=== PATIENT | male | born 1945 | race Caucasian/White ===

== ENCOUNTER 2016-05-11 | Outpatient (CLI) | payer MEDICARE | END 2016-05-11 13:59 | disposition critical access hospital (66) | CPT/HCPCS: A0170; A0425; A0426; A0429 ==

== ENCOUNTER 2016-05-11 | Outpatient (CLI) | payer MEDICARE | END 2016-05-11 22:01 | disposition short-term general hospital (02) ==

== ENCOUNTER 2016-05-11 14:41 | Emergency (ER) | payer MEDICARE ==
[2016-05-11] MEDS ORDERED: ONDANSETRON 4 MG/2 ML VIAL IVP STA (15:43)
[2016-05-11] MEDS ORDERED: SODIUM CHLORIDE 0.9% 1,000 ML IV ONE ×4 (15:43→21:12)
[2016-05-11] MEDS ORDERED: ONDANSETRON 4 MG/2 ML VIAL ONE (15:48)
[2016-05-11] MEDS ORDERED: LIDOCAINE 2% URO-JET 5 ML SYRINGE UR ONE (18:23)
[2016-05-11] MEDS ORDERED: ACETAMINOPHEN 325 MG TABLET PO PRN (18:40)
[2016-05-11] MEDS ORDERED: TEMAZEPAM 15 MG CAPSULE PO PRN (18:40)
[2016-05-11] MEDS ORDERED: ONDANSETRON 4 MG/2 ML VIAL IVP PRN (18:40)
[2016-05-11] MEDS ORDERED: SODIUM CHLORIDE FLUSH 0.9% 10 ML SYRINGE IVP PRN (18:40)
[2016-05-11] MEDS ORDERED: SODIUM CHLORIDE 0.9% 1,000 ML IV SCH (19:00)
[2016-05-11] MEDS ORDERED: CIPROFLOXACIN 400 MG/200 ML 200 ML IV ONE (20:36)
[2016-05-11] MEDS ORDERED: HEPARIN 5,000 UNIT/ML VIAL SUBQ SCH (21:00)
[2016-05-11] MEDS ORDERED: SODIUM CHLORIDE FLUSH 0.9% 10 ML SYRINGE IVP SCH (22:00)
[2016-05-12] MEDS ORDERED: TAMSULOSIN 0.4 MG CAPSULE PO SCH (09:00)
[2016-05-12] MEDS ORDERED: POLYETHYLENE GLYCOL 3350 17 GM PACKET PO SCH (09:00)
[2016-05-12] MEDS ORDERED: ASPIRIN EC 81 MG TABLET PO SCH (09:00)
[2016-05-12] MEDS ORDERED: amLODIPine 5 MG TABLET PO SCH (09:00)
[2016-05-12] MEDS ORDERED: ATORVASTATIN 40 MG TABLET PO SCH (09:00)
== END 2016-05-11 22:09 | disposition short-term general hospital (02) ==
DX: N28.9 Disorder of kidney and ureter, unspecified (principal); N40.1 Benign prostatic hyperplasia with lower urinary tract symptoms; R33.8 Other retention of urine; N35.9 Urethral stricture, unspecified; K52.1 Toxic gastroenteritis and colitis; T36.95XA Adverse effect of unspecified systemic antibiotic, initial encounter; E86.0 Dehydration; N30.00 Acute cystitis without hematuria; E11.9 Type 2 diabetes mellitus without complications; Z79.84 Long term (current) use of oral hypoglycemic drugs; J44.9 Chronic obstructive pulmonary disease, unspecified; Z79.82 Long term (current) use of aspirin
CPT/HCPCS: 36415; 51102; 51702; 51798; 76770; 80048; 80053; 81001; 83690; 83735; 85025; 87086; 96360; 96361; 99284; G0103

== ENCOUNTER 2016-06-21 08:07 | Outpatient (CLI) | payer MEDICARE | END 2016-06-21 08:08 | disposition home or self-care (01) | DX: E11.65 Type 2 diabetes mellitus with hyperglycemia (principal) ==

== ENCOUNTER 2016-09-18 06:25 | Outpatient (CLI) | payer MEDICARE | END 2016-09-18 06:26 | disposition home or self-care (01) | LOC: LAB 06:25 | PROVIDERS: ATTEND Urology | DX: R68.82 Decreased libido (principal) | CPT/HCPCS: 36415; 84403 ==

== ENCOUNTER 2016-10-23 06:15 | Outpatient (CLI) | payer MEDICARE | END 2016-10-23 06:16 | disposition home or self-care (01) | LOC: LAB 06:15 | PROVIDERS: ATTEND Urology | DX: E29.1 Testicular hypofunction (principal) | CPT/HCPCS: 36415; 84403 ==

== ENCOUNTER 2017-01-15 13:00 | Outpatient (CLI) | payer MEDICARE ==
[2017-01-15 13:13] LABS: BASOPHILS # (AUTO) 0.1 10^3/uL (0.0-0.1); BASOPHILS % (AUTO) 0.7 %; EOSINOPHILS # (AUTO) 0.3 10^3/uL (0.0-0.7); EOSINOPHILS % (AUTO) 3.1 %; HCT - HEMATOCRIT 49.1 % (42.0-52.0); HGB - HEMOGLOBIN 15.9 g/dL (14.0-18.0); LYMPHOCYTES # (AUTO) 3.2 10^3/uL (1.5-3.5); LYMPHOCYTES % (AUTO) 30.5 %; MEAN CORPUSCULAR HEMOGLOBIN 27.8 pg (27.0-31.0); MEAN CORPUSCULAR HGB CONC 32.3 g/dL (32.0-36.0); MEAN CORPUSCULAR VOLUME 86.1 fL (80.0-94.0); MEAN PLATELET VOLUME 8.6 fL (7.4-11.4); MONOCYTES # (AUTO) 0.7 10^3/uL (0.0-1.0); MONOCYTES % (AUTO) 6.6 %; NEUTROPHILS # (AUTO) 6.2 10^3/uL (1.5-6.6); NEUTROPHILS % (AUTO) 59.1 %; NUCLEATED RED BLOOD CELLS AUTO 0.1 /100WBC; UNCORRECTED WHITE BLOOD COUNT 10.6 x10^3/uL; WHITE BLOOD COUNT 10.6 x10^3/uL (4.8-10.8)
[2017-01-15 13:32] LABS: ALBUMIN/GLOBULIN RATIO 1.3 (1.0-2.2); BILIRUBIN,TOTAL 0.7 mg/dL (0.2-1.0); BUN - BLOOD UREA NITROGEN 15 mg/dL (6-20); CALCIUM 8.6 mg/dL (8.5-10.3); CARBON DIOXIDE - CO2 27 mmol/L (21-32); CHLORIDE 101 mmol/L (101-111); CHOL/HDL RATIO 4.2 (<5.0); CHOLESTEROL 126 mg/dL; CREATININE 0.9 mg/dL (0.6-1.2); GFR - MDRD 83 (>89); GLUCOSE 127 mg/dL (70-100); HDL CHOLESTEROL 30 mg/dL; LDL/HDL RATIO 2.1 (<3.6); POTASSIUM 3.7 mmol/L (3.5-5.0); SODIUM 138 mmol/L (135-145); TOTAL PROTEIN 6.9 g/dL (6.7-8.2); TRIGLYCERIDES 166 mg/dL; VLDL CHOLESTEROL 33 mg/dL
[2017-01-15 15:12] LABS: HEMOGLOBIN A1C 1.15 g/dL
== END 2017-01-15 13:01 | disposition home or self-care (01) ==
LOC: LAB.R 13:00
PROVIDERS: ATTEND Internal Medicine
DX: I10 Essential (primary) hypertension (principal); E11.9 Type 2 diabetes mellitus without complications; E78.5 Hyperlipidemia, unspecified; Z79.899 Other long term (current) drug therapy
CPT/HCPCS: 80053; 80061; 83036; 84443; 85025

== ENCOUNTER 2017-03-04 06:03 | Outpatient (CLI) | payer MEDICARE ==
[2017-03-04 06:25] LABS: BASOPHILS # (AUTO) 0.2 10^3/uL (0.0-0.1); BASOPHILS % (AUTO) 1.4 %; EOSINOPHILS # (AUTO) 0.5 10^3/uL (0.0-0.7); EOSINOPHILS % (AUTO) 4.4 %; HCT - HEMATOCRIT 48.3 % (42.0-52.0); HGB - HEMOGLOBIN 15.9 g/dL (14.0-18.0); LYMPHOCYTES # (AUTO) 2.7 10^3/uL (1.5-3.5); LYMPHOCYTES % (AUTO) 24.6 %; MEAN CORPUSCULAR HEMOGLOBIN 27.8 pg (27.0-31.0); MEAN CORPUSCULAR VOLUME 84.4 fL (80.0-94.0); MEAN PLATELET VOLUME 7.8 fL (7.4-11.4); MONOCYTES # (AUTO) 0.9 10^3/uL (0.0-1.0); MONOCYTES % (AUTO) 8.3 %; NEUTROPHILS # (AUTO) 6.7 10^3/uL (1.5-6.6); NEUTROPHILS % (AUTO) 61.3 %; RED BLOOD COUNT 5.72 10^6/uL (4.70-6.10); RED CELL DISTRIBUTION WIDTH 14.2 % (12.0-15.0); UNCORRECTED WHITE BLOOD COUNT 10.9 x10^3/uL; WHITE BLOOD COUNT 10.9 x10^3/uL (4.8-10.8)
[2017-03-04 06:47] LABS: ALBUMIN/GLOBULIN RATIO 1.1 (1.0-2.2); BILIRUBIN,TOTAL 0.4 mg/dL (0.2-1.0); CALCIUM 8.6 mg/dL (8.5-10.3); CREATININE 0.9 mg/dL (0.6-1.2)
[2017-03-04 07:16] LABS: PSA TOTAL 6.42 ng/mL (0.000-2.000)
== END 2017-03-04 06:04 | disposition home or self-care (01) ==
LOC: LAB 06:03
PROVIDERS: ATTEND Urology
DX: N35.9 Urethral stricture, unspecified (principal); E29.1 Testicular hypofunction; N52.9 Male erectile dysfunction, unspecified; R68.82 Decreased libido
CPT/HCPCS: 36415; 80053; 84153; 84403; 85025

== ENCOUNTER 2017-04-18 19:32 | Outpatient (CLI) | payer MEDICARE ==
--- NOTE | 2017-04-21 08:56 | CONSULTATION NOTE ---
DATE OF SERVICE: 04/18/2017 Physician: Dionisio Stoner MD DATE OF CONSULT: 04/18/2017 REFERRING PHYSICIAN: Dr. Duong. REASON FOR REFERRAL: Gastrointestinal bleeding. HISTORY OF PRESENT ILLNESS: The patient is a 72-year-old male who presents with 1-day history of black stools. This is the first time he has had this. He has had intermittent upper abdominal pain for the last week. He has had some hematemesis also. He started to have the black stools yesterday and became lightheaded. He was then taken to the hospital by ambulance. He was found to have a hemoglobin of 8.7. He was tachycardic and hypotensive. Blood pressure of 80/43 responding to fluids. He denies any history of peptic ulcer disease. He has been taking Aleve twice a day for arthritis. He has never had an upper endoscopy. PAST MEDICAL HISTORY: Diabetes, COPD, hypertension, BPH. FAMILY HISTORY: Father with history of esophageal cancer, mother with lung cancer. SOCIAL HISTORY: The patient is . HABITS: The patient quit smoking. Socially drinks and denies any drug use. PAST SURGICAL HISTORY: None. MEDICATIONS 1. Glimepiride. 2. Lisinopril. 3. Metformin. 4. Atorvastatin. ALLERGIES 1. CIPRO. 2. FLOMAX. REVIEW OF SYSTEMS CONSTITUTIONAL: Weakness. GASTROINTESTINAL: Black stools along with hematemesis. GENITOURINARY difficulty with urination, which he straight caths himself. MUSCULOSKELETAL: Degenerative joint disease. A 12-point review of systems was obtained with pertinent positives discussed and all others being negative. PHYSICAL EXAMINATION VITAL SIGNS: Heart rate is 101, respirations 18, blood pressure 104/74. GENERAL: The patient is sitting up in bed. He is cooperative and not in any distress at the current time. EYES: Nonicteric. NECK: No lymphadenopathy. HEART: Regular. LUNGS: Clear. BACK: Nontender. ABDOMEN: Soft, nontender. EXTREMITIES: No edema or cyanosis. NEUROLOGIC: The patient appears to be neurologically intact without any deficit. PSYCHOLOGICAL: The patient is coherent, cooperative, and appears to answer questions fully. DIAGNOSTIC DATA: White blood cell count of 16, hemoglobin 8.7, platelets of 466, creatinine of 0.9. ASSESSMENT 1. Black stools along with hematemesis secondary to probable upper gastrointestinal bleeding. He is improved with fluids. I recommend the patient be admitted to the hospital and stabilized. Once stabilized then he will undergo an upper endoscopy with possible control of bleeding or biopsy. Risks and possible complications of the procedure have been explained to him. He accepts the risks and wishes to proceed. 2. History of diabetes on medications. 3. Hypertension on medications. 4. Chronic obstructive pulmonary disease on inhalers. PLAN 1. The patient will be admitted to the hospital. 2. N.p.o. 3. IV fluids. 4. Blood replacement. 5. Esophagogastroduodenoscopy with possible control of bleeding or biopsy. TD: 04/21/2017 09:55
== END 2017-04-18 19:33 | disposition critical access hospital (66) ==
LOC: EMS 19:32
PROVIDERS: ATTEND Surgery
DX: R53.1 Weakness (principal); R61 Generalized hyperhidrosis; R42 Dizziness and giddiness
CPT/HCPCS: A0425; A0427

== ENCOUNTER 2017-04-18 19:44 | Inpatient (IN) | payer MEDICARE ==
[2017-04-18] MEDS ORDERED: SODIUM CHLORIDE 0.9% 1,000 ML IV ONE (20:06)
[2017-04-18 20:50] LABS: BASOPHILS # (AUTO) 0.1 10^3/uL (0.0-0.1); BASOPHILS % (AUTO) 0.4 %; EOSINOPHILS % (AUTO) 0.2 %; HGB - HEMOGLOBIN 8.7 g/dL (14.0-18.0); LYMPHOCYTES # (AUTO) 1.4 10^3/uL (1.5-3.5); LYMPHOCYTES % (AUTO) 8.4 %; MEAN CORPUSCULAR HEMOGLOBIN 27.3 pg (27.0-31.0); MEAN CORPUSCULAR HGB CONC 32.5 g/dL (32.0-36.0); MEAN PLATELET VOLUME 7.2 fL (7.4-11.4); MONOCYTES # (AUTO) 0.7 10^3/uL (0.0-1.0); NEUTROPHILS # (AUTO) 14.1 10^3/uL (1.5-6.6); PLT - PLATELET COUNT 466 10^3/uL (130-450); RED BLOOD COUNT 3.17 10^6/uL (4.70-6.10); RED CELL DISTRIBUTION WIDTH 14.7 % (12.0-15.0); WHITE BLOOD COUNT 16.2 x10^3/uL (4.8-10.8)
[2017-04-18 20:59] LABS: ALBUMIN 2.9 g/dL (3.2-5.5); BILIRUBIN,TOTAL 0.4 mg/dL (0.2-1.0); CALCIUM 7.9 mg/dL (8.5-10.3); CREATININE 0.9 mg/dL (0.6-1.2); TOTAL PROTEIN 5.8 g/dL (6.7-8.2)
[2017-04-18] MEDS ORDERED: PANTOPRAZOLE 40 MG VIAL IVP STA (21:18)
--- NOTE | 2017-04-18 21:21 | ED Physician Documentation ---
PD HPI GI BLEED - Stated complaint Stated Complaint: WEAKNESS, VOMITING - Chief complaint Chief Complaint: General - History obtained from History obtained from: Patient, Family - History of Present Illness Timing - onset: How many days ago (3) Timing - duration: Days (3) Timing - details: Gradual onset, Still present Associated symptoms: Hematemesis (today), Black/tarry stool Contributing factors: NSAID use Improved by: Laying still Worsened by: Position Similar symptoms before: Has not had sx before Recently seen: Not recently seen - Additional information Additional information: 72-year-old male with a history of COPD and type 2 diabetes as well as arthritis and takes Aleve twice per day. He does not always take this with food. He has developed some diarrhea a week ago and took some Pepto-Bismol. When he had some black stool he thought this was the Pepto-Bismol. He subsequently had some constipation and developed again black stool when he became lightheaded and dizzy and vomited blood he came to the hospital. Review of Systems Constitutional: reports: Fatigue, Sweats. denies: Fever, Chills Eyes: denies: Decreased vision Ears: denies: Ear pain Nose: denies: Congestion Throat: denies: Sore throat Cardiac: denies: Chest pain / pressure Respiratory: reports: Cough. denies: Dyspnea GI: reports: Abdominal Pain, Nausea, Vomiting, Hematemesis, Bloody / black stool : denies: Frequency Skin: denies: Rash Musculoskeletal: denies: Neck pain, Back pain Neurologic: reports: Generalized weakness. denies: Focal weakness, Numbness PD PAST MEDICAL HISTORY - Past Medical History Past Medical History: Yes Respiratory: COPD Endocrine/Autoimmune: Type 2 diabetes GI: Hemorrhoids : Benign prostate hypertrophy, Kidney stones Other Past Medical History: urosepsis - Past Surgical History Past Surgical History: No - Present Medications Home Medications: Ambulatory Orders Medication Instructions Recorded Confirmed Atorvastatin Calcium 40 mg DAILY 05/11/16 05/11/16 Glimepiride 2 mg DAILY 05/11/16 05/11/16 Lisinopril 5 mg DAILY 05/11/16 05/11/16 Metformin HCl 500 mg BID 05/11/16 05/11/16 - Allergies Allergies/Adverse Reactions: Allergies Allergy/AdvReac Type Severity Reaction Status Date / Time tamsulosin [From Flomax] Allergy Rash Verified 04/18/17 19:52 ciprofloxacin AdvReac Cramps Verified 04/18/17 19:51 - Social History Does the pt smoke?: No Smoking Status: Never smoker Does the pt drink ETOH?: Yes Does the pt have substance abuse?: No - Immunizations Immunizations are current?: Yes PD ED PE NORMAL - Vitals Vital signs reviewed: Yes (tachy and hypotensive) - General General: Alert and oriented X 3, No acute distress, Well developed/nourished - HEENT HEENT: Atraumatic, PERRL, EOMI - Neck Neck: Supple, no meningeal sign - Cardiac Cardiac: No murmur, Other (tachy to 110) - Respiratory Respiratory: No respiratory distress, Clear bilaterally - Abdomen Abdomen: Soft, Non tender - Back Back: No CVA TTP, No spinal TTP - Derm Derm: Normal color, Warm and dry, No rash - Extremities Extremities: No deformity, No edema - Neuro Neuro: No motor deficit, No sensory deficit Eye Opening: Spontaneous Motor: Obeys Commands Verbal: Oriented GCS Score: 15 - Psych Psych: Normal mood, Normal affect Results - Vitals Vitals: Vital Signs - 24 hr 04/18/17 04/18/17 19:50 20:01 Heart Rate 103 H 101 H Respiratory 20 18 Rate Blood Pressure 80/43 L 104/74 O2 Saturation 98 100 Oxygen O2 Source Room air - Labs Labs: Laboratory Tests 04/18/17 04/18/17 20:35 20:35 WBC 16.2 H RBC 3.17 L Hgb 8.7 L Hct 26.7 L MCV 84.0 MCH 27.3 MCHC 32.5 RDW 14.7 Plt Count 466 H MPV 7.2 L Neut # 14.1 H Lymph # 1.4 L [place] # 0.7 Eos # 0.0 Baso # 0.1 Absolute Nucleated RBC 0.02 Nucleated RBC % 0.1 Sodium 134 L Potassium 5.4 H Chloride 103 Carbon Dioxide 23 Anion Gap 8.0 BUN 47 H Creatinine 0.9 Estimated GFR (MDRD) 83 L Glucose 211 H Calcium 7.9 L Total Bilirubin 0.4 AST 19 ALT 24 Alkaline Phosphatase 50 Total Protein 5.8 L Albumin 2.9 L Globulin 2.9 Albumin/Globulin Ratio 1.0 Lipase 24 PD MEDICAL DECISION MAKING - ED course Complexity details: reviewed old records, reviewed results, re-evaluated patient , considered differential, d/w patient, d/w family ED course: 72-year-old male with acute upper GI bleeding has BUN elevated out of proportion to the creatinine has vomited blood and has dark tarry stool. He has a history of nonsteroidal use with Aleve being used without food. He improved with IV hydration 4 units of packed red blood cells are ordered and the patient is administered Protonix [address] Stoner is consulted in the case and will backup medicine for admission. Dr. Duong is consulted in the case and has graciously agreed to take care of the patient in the hospital. Departure - Departure Disposition: [facility] DC/Xfer Clinical Impression: GI bleeding Qualifiers: GI bleed type/associated pathology: unspecified gastrointestinal hemorrhage type Qualified Code(s): K92.2 - Gastrointestinal hemorrhage, unspecified Condition: Serious
[2017-04-18] MEDS ORDERED: SODIUM CHLORIDE 0.9% 500 ML IV SCH (21:30)
[2017-04-18] MEDS ORDERED: ACETAMINOPHEN 325 MG TABLET PO PRN (21:30)
[2017-04-18] MEDS ORDERED: PROCHLORPERAZINE 10 MG/2 ML VIAL IVP PRN (21:30)
[2017-04-18] MEDS ORDERED: SODIUM CHLORIDE FLUSH 0.9% 10 ML SYRINGE IVP PRN (21:30)
[2017-04-18] MEDS ORDERED: HYDROcod/ACETAM 5/325 MG TABLET PO PRN (21:30)
[2017-04-18] MEDS ORDERED: ONDANSETRON 4 MG/2 ML VIAL IVP PRN (21:30)
--- NOTE | 2017-04-18 21:37 | HISTORY & PHYSICAL EXAMINATION ---
Chief Complaint - Chief Complaint Chief Complaint: Dark tarry stools and lightheadness History of Present Illness - Admitted From Admitted From:: Emergency department - History Obtained From Records Reviewed: Yes History obtained from: Patient Exam Limitations: None - History of Present Illness HPI Comment/Other: Patient is a 72-year-old gentleman with a past medical history significant for diabetes, hypertension, obesity, history of urinary retention requiring lysis of scar tissue, osteoarthritis and COPD who presented to the emergency department with a chief complaint of black tarry stools and lightheadedness. The patient states that he was in his normal state of health until yesterday when he states that he felt as though he was very weak. He states that he felt particularly bad when he would stand. He tried to drink plenty of fluid and take it easy yesterday and states that he seemed to feel better by the end of the day. He states he is also been experiencing epigastric abdominal pain for about the last week. He states the pain occurs at night before he goes to bed and he assumed that it was just acid reflux. He states that today the pain was more persistent throughout the day and therefore he took some Pepto-Bismol. The patient states that he had been constipated for the last 3 days and then this afternoon he had 3 bowel movements within 2 hours. He states that his stool was black and tarry looking. The patient states that after he got up from his third bowel movement he again felt very lightheaded and diaphoretic. The patient states that he then had to go back to the bathroom as he felt nauseated and then had one episode of projectile vomiting. The patient states that his emesis was clarissa blood and he became so lightheaded that he slowly went to the floor. The patient states that his found him on the floor in the bathroom. The patient states that he was awake and told his he was okay but the immediately called 911 and brought the patient into the emergency department. The patient admits to taking Aleve at home. He states that he has been taking Aleve for his arthritis of his bilateral hands. He states that he is always taken it on an empty stomach in the morning. He states he takes 2 tablets every morning for the last 10 years. The patient also states that he was suffering from flulike symptoms about 2 weeks ago and was just improving and initially thought that all his above symptoms were due to persistence of the flu. The patient denies bloody stools. The patient denies being on any anticoagulation. The patient denies any alcohol use. Patient denies any headaches, blurred vision, runny nose, sore throat, nasal congestion, difficulty swallowing, neck pain, neck stiffness, chest pain, shortness of air, orthopnea, PND, increased lower extremity swelling, urinary urgency, urinary frequency, dysuria, joint stiffness, joint swelling, muscle aches, back pain, recent unintentional weight loss, changes in his appetite, fevers, chills, skin changes or any focal neurologic deficits. On presentation to the emergency department the patient was afebrile however he was tachycardic and hypotensive with a blood pressure of 80/43. The patient did appear pale on presentation and his lab work revealed a hemoglobin of 8.7 with previous baseline from just 2 months earlier of 15.9. The patient did have a leukocytosis of 16.2. He was hyperglycemic with a blood glucose of 211 and slightly hyponatremic with a sodium of 134. The patient was immediately given 1 L of IV fluid. Given the patient's history and the lab findings it was quite evident that the patient was likely having an upper GI bleed. The patient was placed on IV Protonix and surgery was consulted in the emergency department. Dr. Rios Stoner stated that the patient would need a endoscopy and possible colonoscopy. He asked that the hospitalist team admit the patient and that he would see him in consultation. The patient was admitted to the medical [facility] for a GI bleed. History - Past Medical History Cardiovascular: reports: Hypertension, Other (Obesity) Respiratory: reports: COPD Endocrine/Autoimmune: reports: Type 2 diabetes GI: reports: Hemorrhoids : reports: Benign prostate hypertrophy, Retention (Uses straight cath several times a week. 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 Social History Notes: The patient is originally from [place], [place] but lived in [place] for most of his life until he retired. 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 He and his have been for 30 years this is the patient's second marriage. The patient has 2 biological children and 3 stepchildren. He quit smoking 30 years ago but smoked about a pack a day for 20 years. Patient does drink socially and he denies any illicit drug use. - POLST Patient has POLST: No POLST Status: Full Code Meds/Allgy - Home Medications Home Medications: Ambulatory Orders Medication Instructions Recorded Confirmed Atorvastatin Calcium 40 mg DAILY 05/11/16 05/11/16 Glimepiride 2 mg DAILY 05/11/16 05/11/16 Lisinopril 5 mg DAILY 05/11/16 05/11/16 Metformin HCl 500 mg BID 05/11/16 05/11/16 - Allergies Allergies/Adverse Reactions: Allergies Allergy/AdvReac Type Severity Reaction Status Date / Time tamsulosin [From Flomax] Allergy Rash Verified 04/18/17 19:52 ciprofloxacin AdvReac Cramps Verified 04/18/17 19:51 Review of Systems - Other Findings Other Findings: A comprehensive review of systems was performed the pertinent positives and negatives are stated above in the HPI and the remainder of the review of systems is negative. Exam - Vital Signs Reviewed Vital Signs: Yes Vital Signs: Vital Signs x48h Pulse Resp BP Pulse Ox 04/18/17 21:34 97 18 111/70 100 04/18/17 20:01 101 H 18 104/74 100 04/18/17 19:50 103 H 20 80/43 L 98 - Physical Exam General Appearance: positive: No acute distress, Alert Eyes Bilateral: positive: Normal inspection, PERRL, EOMI, No lid inflammation, No scleral icterus, Other (Conjunctival pallor) ENT: positive: ENT inspection nml, Pharynx nml, Dry mucous membranes. negative : Purulent nasal drainage, Pharyngeal erythema, Oral lesions Neck: positive: Nml inspection, Thyroid nml, No JVD, Trachea midline. negative : Thyromegaly, Lymphadenopathy (R), Lymphadenopathy (L), Carotid bruit, Tracheal deviation Respiratory: positive: Chest non-tender, No respiratory distress, Breath sounds nml. negative: Wheezes, Rales, Rhonchi Cardiovascular: positive: Regular rate & rhythm, No murmur, No gallop Peripheral Pulses: positive: 2+ Abdomen: positive: No organomegaly, Nml bowel sounds, Tenderness (Epigastric), Other (No peritoneal signs). negative: Guarding, Rebound, Hepatomegaly Rectal: positive: Stool - heme POS Back: positive: Nml inspection. negative: CVA tenderness (R), CVA tenderness (L ) Skin: positive: Color nml, No rash, Warm, Dry, Pallor. negative: Cyanosis, Diaphoresis Extremities: positive: Non-tender, Full ROM, Nml appearance, No pedal edema. negative: Joint swelling Neurologic/Psychiatric: positive: Oriented x3, CN's nml (2-12), Motor nml, Sensation nml, Mood/affect nml Conclusion/Plan - Problem List (1) GI bleed due to NSAIDs Conclusion/Plan: Patient presented with weakness, lightheadedness, dark tarry stool and hematemesis. On presentation the patient's hemoglobin was 8.7 down from a baseline of 15.9 just 2 months ago. Patient was hypotensive with a blood pressure of 80/43 and tachycardic with a heart rate of 103. Patient appeared pale. Patient was having an obvious GI bleed. On further history the patient has been taking 2 tablets of Aleve on an empty stomach every morning for the past 10 years. The patient also complained of epigastric abdominal pain for the last week which was worsening today. The patient likely has a gastric ulcer from his NSAID use and has actively having a GI bleed. This appears to be an upper GI bleed. Plan: 2 large-bore IVs Transfuse patient 2 units of packed RBCs given the severe decrease in hemoglobin in the presence of hypotension, tachycardia and active bleeding. IV Protonix 40 mg twice daily N.p.o. H&H every 6 hours Surgical consult for EGD/colonoscopy IV fluid resuscitation Hold all antihypertensives Stop NSAIDs SCDs for DVT prophylaxis (2) Diabetes Conclusion/Plan: Patient has history of diabetes and uses metformin and glimepiride at home. Given that the patient is n.p.o. we will place him on n.p.o. sliding scale insulin Once patient is able to eat we will place him on a diabetic diet We will check a hemoglobin A1c Patient's blood glucose will be monitored 4 times a day Qualifiers: Diabetes mellitus type: type 2 (3) Hypertension Conclusion/Plan: Patient has history of hypertension and is on lisinopril at home. Given the patient's presentation with hypotension and GI bleed patient's antihypertensive medication will be held. IV fluids Qualifiers: Hypertension type: essential hypertension Qualified Code(s): I10 - Essential (primary) hypertension (4) COPD (chronic obstructive pulmonary disease) Conclusion/Plan: Patient has history of COPD and was a longtime smoker. The patient has had recent URI and has been having bronchitis and wheezing recently. Patient will be placed on duo nebs as needed Oxygen as needed (5) Hyperlipidemia Conclusion/Plan: Patient has history of hyperlipidemia and takes Lipitor at home We will continue the patient's home dose of Lipitor Stable - Lab Results Lab results reviewed: Yes Fish Bones: 04/18/17 20:35 04/18/17 20:35 Other Lab Results: Laboratory Results WBC 16.2 x10^3/uL (4.8-10.8) H 04/18/17 20:35 RBC 3.17 10^6/uL (4.70-6.10) L 04/18/17 20:35 Hgb 8.7 g/dL (14.0-18.0) L 04/18/17 20:35 Hct 26.7 % (42.0-52.0) L 04/18/17 20:35 MCV 84.0 fL (80.0-94.0) 04/18/17 20:35 MCH 27.3 pg (27.0-31.0) 04/18/17 20:35 MCHC 32.5 g/dL (32.0-36.0) 04/18/17 20:35 RDW 14.7 % (12.0-15.0) 04/18/17 20:35 Plt Count 466 10^3/uL (130-450) H 04/18/17 20:35 MPV 7.2 fL (7.4-11.4) L 04/18/17 20:35 Neut # 14.1 10^3/uL (1.5-6.6) H 04/18/17 20:35 Lymph # 1.4 10^3/uL (1.5-3.5) L 04/18/17 20:35 [place] # 0.7 10^3/uL (0.0-1.0) 04/18/17 20:35 Eos # 0.0 10^3/uL (0.0-0.7) 04/18/17 20:35 Baso # 0.1 10^3/uL (0.0-0.1) 04/18/17 20:35 Absolute Nucleated RBC 0.02 x10^3/uL 04/18/17 20:35 Nucleated RBC % 0.1 /100WBC 04/18/17 20:35 PT 13.3 secs (9.9-12.6) H 04/18/17 20:35 INR 1.2 (0.8-1.2) 04/18/17 20:35 Sodium 134 mmol/L (135-145) L 04/18/17 20:35 Potassium 5.4 mmol/L (3.5-5.0) H 04/18/17 20:35 Chloride 103 mmol/L (101-111) 04/18/17 20:35 Carbon Dioxide 23 mmol/L (21-32) 04/18/17 20:35 Anion Gap 8.0 (6-13) 04/18/17 20:35 BUN 47 mg/dL (6-20) H 04/18/17 20:35 Creatinine 0.9 mg/dL (0.6-1.2) 04/18/17 20:35 Estimated GFR (MDRD) 83 (>89) L 04/18/17 20:35 Glucose 211 mg/dL (70-100) H 04/18/17 20:35 Calcium 7.9 mg/dL (8.5-10.3) L 04/18/17 20:35 Total Bilirubin 0.4 mg/dL (0.2-1.0) 04/18/17 20:35 AST 19 IU/L (10-42) 04/18/17 20:35 ALT 24 IU/L (10-60) 04/18/17 20:35 Alkaline Phosphatase 50 IU/L (42-121) 04/18/17 20:35 Total Protein 5.8 g/dL (6.7-8.2) L 04/18/17 20:35 Albumin 2.9 g/dL (3.2-5.5) L 04/18/17 20:35 Globulin 2.9 g/dL (2.1-4.2) 04/18/17 20:35 Albumin/Globulin Ratio 1.0 (1.0-2.2) 04/18/17 20:35 Lipase 24 U/L (22-51) 04/18/17 20:35 Blood Type A POSITIVE 04/18/17 21:47 Blood Type Recheck A POSITIVE 04/18/17 20:35 Antibody Screen NEGATIVE 04/18/17 21:47 Crossmatch IS Only See Detail 04/18/17 21:47 - EKG Results EKG Findings: Early repolarization in the anterior leads otherwise sinus rhythm with normal looking EKG Core Measures - Anticipated LOS I expect patient to be DC'd or transferred within 96 hours.: Yes - DVT/VTE - Prophylaxis VTE/DVT Device ordered at admit?: Yes
[2017-04-18 21:56] LABS: INR 1.2 (0.8-1.2); PT - PROTHROMBIN TIME 13.3 secs (9.9-12.6)
[2017-04-18] MEDS: SODIUM CHLORIDE FLUSH 0.9% 10 ML SYRINGE IVP SCH (22:40)
[2017-04-18] MEDS: SODIUM CHLORIDE 0.9% 1,000 ML IV SCH (22:40)
[2017-04-19] MEDS: INSULIN REGULAR HUMAN 100 UNIT/1 ML 10 ML MDV SUBQ SCH ×5 (01:06→22:57)
[2017-04-19] MEDS: IPRATROPIUM/ALBUTEROL 3 ML NEB INH PRN ×2 (01:20→06:19)
[2017-04-19 02:41] LABS: BASOPHILS # (AUTO) 0.1 10^3/uL (0.0-0.1); BASOPHILS % (AUTO) 0.6 %; EOSINOPHILS # (AUTO) 0.1 10^3/uL (0.0-0.7); EOSINOPHILS % (AUTO) 0.4 %; HGB - HEMOGLOBIN 7.2 g/dL (14.0-18.0); LYMPHOCYTES # (AUTO) 2.7 10^3/uL (1.5-3.5); LYMPHOCYTES % (AUTO) 18.8 %; MEAN CORPUSCULAR HEMOGLOBIN 27.5 pg (27.0-31.0); MEAN CORPUSCULAR HGB CONC 33.1 g/dL (32.0-36.0); MEAN CORPUSCULAR VOLUME 83.1 fL (80.0-94.0); MEAN PLATELET VOLUME 7.6 fL (7.4-11.4); MONOCYTES # (AUTO) 0.8 10^3/uL (0.0-1.0); MONOCYTES % (AUTO) 5.3 %; NEUTROPHILS # (AUTO) 10.7 10^3/uL (1.5-6.6); NEUTROPHILS % (AUTO) 74.9 %; PLT - PLATELET COUNT 411 10^3/uL (130-450); RED BLOOD COUNT 2.63 10^6/uL (4.70-6.10); RED CELL DISTRIBUTION WIDTH 14.7 % (12.0-15.0); WHITE BLOOD COUNT 14.2 x10^3/uL (4.8-10.8)
[2017-04-19 02:49] LABS: ALBUMIN 2.7 g/dL (3.2-5.5); ALKALINE PHOSPHATASE 48 IU/L (42-121); ALT ALANINE AMINOTRANSFERASE 21 IU/L (10-60); AST ASPARTATE AMINOTRANSFERASE 17 IU/L (10-42); BILIRUBIN,TOTAL < 0.2 mg/dL (0.2-1.0); BUN - BLOOD UREA NITROGEN 44 mg/dL (6-20); CALCIUM 7.7 mg/dL (8.5-10.3); CARBON DIOXIDE - CO2 22 mmol/L (21-32); CHLORIDE 110 mmol/L (101-111); CREATININE 0.9 mg/dL (0.6-1.2); GFR - MDRD 83 (>89); GLUCOSE 156 mg/dL (70-100); SODIUM 138 mmol/L (135-145); TOTAL PROTEIN 5.3 g/dL (6.7-8.2)
[2017-04-19] MEDS ORDERED: SODIUM CHLORIDE 0.9% 500 ML IV SCH (03:24)
[2017-04-19] MEDS: SODIUM CHLORIDE 0.9% 1,000 ML IV SCH ×3 (04:35→22:54)
[2017-04-19 04:40] LABS: HB2 TOTAL 7.7 g/dL; HEMOGLOBIN A1C 0.42 g/dL; HEMOGLOBIN A1C % 7.1 % (4.6-6.2)
[2017-04-19] MEDS: SODIUM CHLORIDE FLUSH 0.9% 10 ML SYRINGE IVP SCH ×3 (06:24→21:17)
[2017-04-19] MEDS ORDERED: MIDAZOLAM 2 MG/2 ML VIAL IVP ONE (08:30)
[2017-04-19] MEDS ORDERED: PROPOFOL 200 MG/20 ML VIAL IVP ONE (08:30)
[2017-04-19] MEDS ORDERED: KETAMINE 500 MG/10 ML VIAL IVP ONE (08:30)
[2017-04-19] MEDS ORDERED: GLYCOPYRROLATE 1 MG/5 ML VIAL IVP ONE (08:30)
[2017-04-19] MEDS ORDERED: GLUCAGON 1 MG/ML VIAL IM ONE (08:30)
[2017-04-19] MEDS ORDERED: SODIUM CHLORIDE 0.9% 1,000 ML IV ONE (08:41)
[2017-04-19] MEDS ORDERED: EPINEPHrine 1 MG/ML AMP IVP ONE (08:52)
[2017-04-19] MEDS ORDERED: LACTATED RINGERS 1,000 ML IV ONE (09:28)
--- NOTE | 2017-04-19 10:53 | PROVIDER PROGRESS NOTE ---
Subjective - Prog Note Date Prog Note Date: 04/19/17 Prog Note Time: 10:51 - Subjective Pt reports feeling: Improved Subjective: he has received 2 units of packed cells. He has had 1 more black tarry stool. Blood pressure has been stable overnight. He did go to the operating room to get an EGD with Dr. Stoner and he has a large bleeding ulcer. Active bleeding. He got epinephrine injected at the base. Dr. Stoner would like him transferred to ICU for vasopressin infusion. Patient denies chest pain, cough, shortness of breath. Current Medications - Current Medications Current Medications: Active Medications Acetaminophen (Tylenol) 650 mg PO Q4HR PRN PRN Reason: Pain 1 to 4 Acetaminophen/Hydrocodone Bitart ([place] 5/325) 1 tab PO Q4HR PRN PRN Reason: Pain 5 to 7 Albuterol/Ipratropium (Duoneb) 3 ml INH Q4HR PRN PRN Reason: Wheezing Last Admin: 04/19/17 06:19 Dose: 3 ml Atorvastatin Calcium (Lipitor) 40 mg PO DAILY [facility] Sodium Chloride (Normal Saline 0.9%) 1,000 mls @ 150 mls/hr IV .Q6H40M [facility] Last Admin: 04/19/17 04:35 Dose: 150 mls/hr Insulin Human Regular (Novolin R) 1 - 5 unit SUBQ Q6HR [facility] PRN Reason: Protocol Last Admin: 04/19/17 06:24 Dose: Not Given Ondansetron HCl (Zofran Inj) 4 mg IVP Q6HR PRN PRN Reason: Nausea / Vomiting Pantoprazole Sodium (Protonix) 40 mg IVP BID [facility] Polyethylene Glycol (Miralax) 17 gm PO DAILY [facility] Prochlorperazine Edisylate (Compazine Inj) 10 mg IVP Q6HR PRN PRN Reason: Nausea / Vomiting Sodium Chloride (Normal Saline Flush 0.9%) 10 ml IVP PRN PRN PRN Reason: NEEDED PER PROVIDER ORDERS Sodium Chloride (Normal Saline Flush 0.9%) 10 ml IVP Q8HR [facility] Last Admin: 04/19/17 06:24 Dose: 10 ml Atorvastatin Calcium 40 mg PO QPM 05/11/16 Glimepiride 2 mg PO QDBREAKFAST 05/11/16 Lisinopril 5 mg PO DAILY 05/11/16 Metformin HCl 500 mg PO BIDWM 05/11/16 Objective - Vital Signs/Intake & Output Reviewed Vital Signs: Yes Vital Signs: Vital Signs x48h Temp Pulse Pulse Resp BP BP Pulse Ox 04/19/17 10:16 100 04/19/17 09:48 97 04/19/17 09:41 97 04/19/17 09:36 96 04/19/17 09:31 98 04/19/17 09:24 98 04/19/17 06:45 37 C 91 91 18 104/56 L 104/56 L 04/19/17 06:30 37 C 101 H 16 116/59 L 04/19/17 06:21 100 20 04/19/17 06:05 37 C 92 16 104/50 L 04/19/17 04:30 37.5 C 97 16 96/50 L 97 04/19/17 02:57 99 90/54 L Intake & Output: Intake & Output 04/16/17 04/17/17 04/18/17 04/19/17 23:59 23:59 23:59 23:59 Intake Total 1502.5 2187.5 Output Total 700 Balance 1502.5 1487.5 - Objective General Appearance: positive: No acute distress, Alert, Other ( at the bedside and all questions were answered) Eyes Bilateral: positive: PERRL, EOMI ENT: positive: Pharynx nml Neck: positive: No JVD. negative: Stiff neck, Carotid bruit Respiratory: positive: Chest non-tender, No respiratory distress. negative: Wheezes, Rales, Rhonchi Cardiovascular: positive: Regular rate & rhythm, Tachycardia (At times). negative: Systolic murmur, Gallop/S4, Friction rub Abdomen: positive: No organomegaly, Nml bowel sounds, No distention, Tenderness (Very mild and epigastrium), Other (Generous pannus). negative: Guarding, Rebound Extremities: positive: Full ROM, No pedal edema Neurologic/Psychiatric: positive: Oriented x3, CN's nml (2-12), Motor nml - Lab Results Fish Bones: 04/19/17 02:20 04/19/17 02:20 Other Labs: Lab Results x24hrs 04/19/17 04/19/17 04/19/17 Range/Units 02:20 02:20 02:20 WBC 14.2 H (4.8-10.8) x10^3/uL RBC 2.63 L (4.70-6.10) 10^6/uL Hgb 7.2 L (14.0-18.0) g/dL Hct 21.9 L (42.0-52.0) % MCV 83.1 (80.0-94.0) fL MCH 27.5 (27.0-31.0) pg MCHC 33.1 (32.0-36.0) g/dL RDW 14.7 (12.0-15.0) % Plt Count 411 (130-450) 10^3/uL MPV 7.6 (7.4-11.4) fL Neut # 10.7 H (1.5-6.6) 10^3/uL Lymph # 2.7 (1.5-3.5) 10^3/uL Campbell # 0.8 (0.0-1.0) 10^3/uL Eos # 0.1 (0.0-0.7) 10^3/uL Baso # 0.1 (0.0-0.1) 10^3/uL Absolute Nucleated RBC 0.00 x10^3/uL Nucleated RBC % 0.0 /100WBC Sodium 138 (135-145) mmol/L Potassium 4.6 (3.5-5.0) mmol/L Chloride 110 (101-111) mmol/L Carbon Dioxide 22 (21-32) mmol/L Anion Gap 6.0 (6-13) BUN 44 H (6-20) mg/dL Creatinine 0.9 (0.6-1.2) mg/dL Estimated GFR (MDRD) 83 L (>89) Glucose 156 H (70-100) mg/dL Glycated Hemoglobin 7.1 H (4.6-6.2) % Estim Average Glucose 157 H (70-100) Calcium 7.7 L (8.5-10.3) mg/dL Total Bilirubin < 0.2 L (0.2-1.0) mg/dL AST 17 (10-42) IU/L ALT 21 (10-60) IU/L Alkaline Phosphatase 48 (42-121) IU/L Total Protein 5.3 L (6.7-8.2) g/dL Albumin 2.7 L (3.2-5.5) g/dL Globulin 2.6 (2.1-4.2) g/dL Albumin/Globulin Ratio 1.0 (1.0-2.2) Blood Type Antibody Screen Crossmatch IS Only 04/18/17 Range/Units 21:47 WBC (4.8-10.8) x10^3/uL RBC (4.70-6.10) 10^6/uL Hgb (14.0-18.0) g/dL Hct (42.0-52.0) % MCV (80.0-94.0) fL MCH (27.0-31.0) pg MCHC (32.0-36.0) g/dL RDW (12.0-15.0) % Plt Count (130-450) 10^3/uL MPV (7.4-11.4) fL Neut # (1.5-6.6) 10^3/uL Lymph # (1.5-3.5) 10^3/uL Campbell # (0.0-1.0) 10^3/uL Eos # (0.0-0.7) 10^3/uL Baso # (0.0-0.1) 10^3/uL Absolute Nucleated RBC x10^3/uL Nucleated RBC % /100WBC Sodium (135-145) mmol/L Potassium (3.5-5.0) mmol/L Chloride (101-111) mmol/L Carbon Dioxide (21-32) mmol/L Anion Gap (6-13) BUN (6-20) mg/dL Creatinine (0.6-1.2) mg/dL Estimated GFR (MDRD) (>89) Glucose (70-100) mg/dL Glycated Hemoglobin (4.6-6.2) % Estim Average Glucose (70-100) Calcium (8.5-10.3) mg/dL Total Bilirubin (0.2-1.0) mg/dL AST (10-42) IU/L ALT (10-60) IU/L Alkaline Phosphatase (42-121) IU/L Total Protein (6.7-8.2) g/dL Albumin (3.2-5.5) g/dL Globulin (2.1-4.2) g/dL Albumin/Globulin Ratio (1.0-2.2) Blood Type A POSITIVE Antibody Screen NEGATIVE Crossmatch IS Only See Detail Assessment/Plan - Problem List (1) GI bleed due to NSAIDs Impression: and he has acute blood loss anemia with this. Patient presented with weakness, lightheadedness, dark tarry stool and hematemesis. On presentation the patient's hemoglobin was 8.7 down from a baseline of 15.9 just 2 months ago. Repeat was 7.2. Patient was hypotensive with a blood pressure of 80/43 and tachycardic with a heart rate of 103. Patient appeared pale. Patient was having an obvious GI bleed. On further history the patient has been taking 2 tablets of Aleve on an empty stomach every morning for the past 10 years. The patient also complained of epigastric abdominal pain for the last week which was worsening today. The patient likely has a gastric ulcer from his NSAID use and has actively having a GI bleed. This appears to be an upper GI bleed. EGD today shows large bleeding ulcer and base was injected with epi. Plan: 2 large-bore IVs continue Transfused 2 units of packed RBCs given the severe decrease in hemoglobin in the presence of hypotension, tachycardia and active bleeding. Transfused again if hgb <7 and if low BP returns. IV Protonix 40 mg twice daily N.p.o. H&H every 6 hours IV fluid resuscitation continues Hold all antihypertensives Stop NSAIDs SCDs for DVT prophylaxis Transfer to ICU for vasopressin infusion. (2) Diabetes Conclusion/Plan: Patient has history of diabetes and uses metformin and glimepiride at home. Given that the patient is n.p.o., he is on n.p.o. sliding scale insulin Once patient is able to eat we will place him on a diabetic diet hemoglobin A1c is 7.1% Patient's blood glucose will be monitored 4 times a day Qualifiers: Diabetes mellitus type: type 2 (3) Hypertension Conclusion/Plan: Patient has history of hypertension and is on lisinopril at home. Given the patient's presentation with hypotension and GI bleed patient's antihypertensive medication will be held. He was 104/56 before going to the OR. will find OR records to review. IV fluids Qualifiers: Hypertension type: essential hypertension Qualified Code(s): I10 - Essential (primary) hypertension (4) COPD (chronic obstructive pulmonary disease) Conclusion/Plan: Patient has history of COPD and was a longtime smoker. The patient has had recent URI and has been having bronchitis and wheezing recently. on duo nebs as needed Oxygen as needed (5) Hyperlipidemia Conclusion/Plan: Patient has history of hyperlipidemia and takes Lipitor at home We will continue the patient's home dose of Lipitor Stable
[2017-04-19] MEDS ORDERED: VASOPRESSIN 20 UNIT in DEXTROSE 5% 99 ML IVP ONE (10:59)
[2017-04-19] MEDS: POLYETHYLENE GLYCOL 3350 17 GM PACKET PO SCH (11:13)
[2017-04-19] MEDS: ATORVASTATIN 40 MG TABLET PO SCH (11:14)
[2017-04-19] MEDS: PANTOPRAZOLE 40 MG VIAL IVP SCH ×2 (11:38→21:17)
[2017-04-19] MEDS: OCTREOTIDE 500 MCG in SODIUM CHLORIDE 0.9% 100ML 99 ML IV SCH ×2 (12:10→19:31)
[2017-04-19 19:10] LABS: HGB - HEMOGLOBIN 8.9 g/dL (14.0-18.0)
[2017-04-19 23:26] LABS: HGB - HEMOGLOBIN 8.8 g/dL (14.0-18.0)
[2017-04-20 05:32] LABS: BASOPHILS # (AUTO) 0.1 10^3/uL (0.0-0.1); BASOPHILS % (AUTO) 0.6 %; EOSINOPHILS # (AUTO) 0.2 10^3/uL (0.0-0.7); EOSINOPHILS % (AUTO) 1.8 %; HGB - HEMOGLOBIN 8.7 g/dL (14.0-18.0); LYMPHOCYTES # (AUTO) 2.9 10^3/uL (1.5-3.5); MEAN CORPUSCULAR HGB CONC 32.8 g/dL (32.0-36.0); MEAN CORPUSCULAR VOLUME 85.5 fL (80.0-94.0); MEAN PLATELET VOLUME 7.7 fL (7.4-11.4); MONOCYTES # (AUTO) 0.6 10^3/uL (0.0-1.0); MONOCYTES % (AUTO) 4.8 %; NEUTROPHILS # (AUTO) 8.4 10^3/uL (1.5-6.6); NEUTROPHILS % (AUTO) 68.8 %; PLT - PLATELET COUNT 339 10^3/uL (130-450); RED CELL DISTRIBUTION WIDTH 15.5 % (12.0-15.0); WHITE BLOOD COUNT 12.2 x10^3/uL (4.8-10.8)
[2017-04-20 05:36] LABS: ALBUMIN 2.7 g/dL (3.2-5.5); ALBUMIN/GLOBULIN RATIO 1.1 (1.0-2.2); BILIRUBIN,TOTAL 0.7 mg/dL (0.2-1.0); CALCIUM 7.3 mg/dL (8.5-10.3); CREATININE 0.9 mg/dL (0.6-1.2); TOTAL PROTEIN 5.1 g/dL (6.7-8.2)
[2017-04-20] MEDS: INSULIN REGULAR HUMAN 100 UNIT/1 ML 10 ML MDV SUBQ SCH ×3 (05:42→17:03)
[2017-04-20] MEDS: SODIUM CHLORIDE 0.9% 1,000 ML IV SCH ×3 (06:05→18:22)
[2017-04-20] MEDS: SODIUM CHLORIDE FLUSH 0.9% 10 ML SYRINGE IVP SCH ×3 (06:05→20:35)
[2017-04-20] MEDS: OCTREOTIDE 500 MCG in SODIUM CHLORIDE 0.9% 100ML 99 ML IV SCH (07:47)
--- NOTE | 2017-04-20 09:14 | PROVIDER PROGRESS NOTE ---
Subjective - General Admit Date: 04/18/17 Procedure Date: 04/19/17 Post Op Days: 1 Procedure Performed: EGD with control of bleeding duodenal ulcer - Review of Systems General: positive: No symptoms Objective - Patient Data Vital Signs: Vital Signs x48h Temp Pulse Resp BP Pulse Ox 04/20/17 08:00 37.1 C 80 16 118/100 H 97 04/20/17 07:00 84 18 114/72 97 04/20/17 06:00 80 14 99/73 97 04/20/17 05:00 82 15 113/65 95 04/20/17 04:00 37.1 C 82 16 113/76 96 04/20/17 03:00 80 16 87/65 L 94 04/20/17 02:00 80 16 101/68 95 Weight: Weight 04/18/17 04/19/17 04/20/17 23:59 23:59 23:59 Weight (kg) 87 kg Intake & Output: Intake and Output Totals x24h 04/18/17 04/19/17 04/20/17 23:59 23:59 23:59 Intake Total 1502.5 4761.0 1100 Output Total 1500 700 Balance 1502.5 3261.0 400 - Lab Results Lab Results: 04/20/17 04:37 04/20/17 04:37 Other Lab Results: Lab Results x24hrs 04/20/17 04/20/17 04/19/17 Range/Units 04:37 04:37 23:15 WBC 12.2 H (4.8-10.8) x10^3/uL RBC 3.10 L (4.70-6.10) 10^6/uL Hgb 8.7 L 8.8 L (14.0-18.0) g/dL Hct 26.5 L 26.0 L (42.0-52.0) % MCV 85.5 (80.0-94.0) fL MCH 28.0 (27.0-31.0) pg MCHC 32.8 (32.0-36.0) g/dL RDW 15.5 H (12.0-15.0) % Plt Count 339 (130-450) 10^3/uL MPV 7.7 (7.4-11.4) fL Neut # 8.4 H (1.5-6.6) 10^3/uL Lymph # 2.9 (1.5-3.5) 10^3/uL [place]wey # 0.6 (0.0-1.0) 10^3/uL Eos # 0.2 (0.0-0.7) 10^3/uL Baso # 0.1 (0.0-0.1) 10^3/uL Absolute Nucleated RBC 0.00 x10^3/uL Nucleated RBC % 0.0 /100WBC Sodium 138 (135-145) mmol/L Potassium 3.9 (3.5-5.0) mmol/L Chloride 110 (101-111) mmol/L Carbon Dioxide 22 (21-32) mmol/L Anion Gap 6.0 (6-13) BUN 20 (6-20) mg/dL Creatinine 0.9 (0.6-1.2) mg/dL Estimated GFR (MDRD) 83 L (>89) Glucose 115 H (70-100) mg/dL Calcium 7.3 L (8.5-10.3) mg/dL Total Bilirubin 0.7 (0.2-1.0) mg/dL AST 23 (10-42) IU/L ALT 22 (10-60) IU/L Alkaline Phosphatase 46 (42-121) IU/L Total Protein 5.1 L (6.7-8.2) g/dL Albumin 2.7 L (3.2-5.5) g/dL Globulin 2.4 (2.1-4.2) g/dL Albumin/Globulin Ratio 1.1 (1.0-2.2) 04/19/17 Range/Units 19:03 WBC (4.8-10.8) x10^3/uL RBC (4.70-6.10) 10^6/uL Hgb 8.9 L (14.0-18.0) g/dL Hct 27.4 L (42.0-52.0) % MCV (80.0-94.0) fL MCH (27.0-31.0) pg MCHC (32.0-36.0) g/dL RDW (12.0-15.0) % Plt Count (130-450) 10^3/uL MPV (7.4-11.4) fL Neut # (1.5-6.6) 10^3/uL Lymph # (1.5-3.5) 10^3/uL [place]wey # (0.0-1.0) 10^3/uL Eos # (0.0-0.7) 10^3/uL Baso # (0.0-0.1) 10^3/uL Absolute Nucleated RBC x10^3/uL Nucleated RBC % /100WBC Sodium (135-145) mmol/L Potassium (3.5-5.0) mmol/L Chloride (101-111) mmol/L Carbon Dioxide (21-32) mmol/L Anion Gap (6-13) BUN (6-20) mg/dL Creatinine (0.6-1.2) mg/dL Estimated GFR (MDRD) (>89) Glucose (70-100) mg/dL Calcium (8.5-10.3) mg/dL Total Bilirubin (0.2-1.0) mg/dL AST (10-42) IU/L ALT (10-60) IU/L Alkaline Phosphatase (42-121) IU/L Total Protein (6.7-8.2) g/dL Albumin (3.2-5.5) g/dL Globulin (2.1-4.2) g/dL Albumin/Globulin Ratio (1.0-2.2) - Current Medications Current Medications: Current Medications Generic Name Dose Route Start Last Admin Trade Name Freq PRN Reason Stop Dose Admin Albuterol/Ipratropium 3 ml 04/18/17 21:30 04/19/17 06:19 Duoneb INH 3 ml Q4HR PRN Administration Wheezing Atorvastatin Calcium 40 mg 04/19/17 09:00 04/19/17 11:14 Lipitor PO Not Given DAILY [facility] Octreotide Acetate 500 mcg/ 100 mls @ 10 mls/hr 04/19/17 12:00 04/20/17 07:47 Sodium Chloride IV 50 mcg/hr .Q10H [facility] 10 mls/hr 50 MCG/HR Administration Insulin Human Regular 1 - 5 unit 04/19/17 00:00 04/20/17 05:42 Novolin R SUBQ Not Given Q6HR [facility] Protocol Pantoprazole Sodium 40 mg 04/19/17 09:00 04/19/17 21:17 Protonix IVP 40 mg BID [facility] Administration Polyethylene Glycol 17 gm 04/19/17 09:00 04/19/17 11:13 Miralax PO Not Given DAILY [facility] Sodium Chloride 10 ml 04/18/17 22:00 04/20/17 06:05 Normal Saline Flush 0.9% IVP 10 ml Q8HR [facility] Administration Impression/Plan - Problem List Problem List: Bleeding duodenal ulcer controlled with hemoclips,epinephrine injection. Hemoglobin stable at 8.7. He has been on an Octreotide drip overnight. May stop Octreotide. Clear liquids follow H&H Reduce IV fluids Continue PPIs
[2017-04-20] MEDS: POLYETHYLENE GLYCOL 3350 17 GM PACKET PO SCH (09:30)
[2017-04-20] MEDS: ATORVASTATIN 40 MG TABLET PO SCH (09:31)
[2017-04-20] MEDS: PANTOPRAZOLE 40 MG VIAL IVP SCH ×2 (09:31→20:35)
[2017-04-20 11:53] LABS: HGB - HEMOGLOBIN 9.3 g/dL (14.0-18.0)
--- NOTE | 2017-04-20 16:11 | PROVIDER PROGRESS NOTE ---
Subjective - Prog Note Date Prog Note Date: 04/20/17 Prog Note Time: 16:09 - Subjective Pt reports feeling: Improved Subjective: he has had only one more black stool but his hgb is staying stable. BP a little low at time to 101 systolic but no symptoms with that. denies cp, sob, abd pain. tolerating his clear liquids. I stopped his octreotide and am now transferring to floor status again. Current Medications - Current Medications Current Medications: Active Medications Acetaminophen (Tylenol) 650 mg PO Q4HR PRN PRN Reason: Pain 1 to 4 Acetaminophen/Hydrocodone Bitart ([place] 5/325) 1 tab PO Q4HR PRN PRN Reason: Pain 5 to 7 Albuterol/Ipratropium (Duoneb) 3 ml INH Q4HR PRN PRN Reason: Wheezing Last Admin: 04/19/17 06:19 Dose: 3 ml Atorvastatin Calcium (Lipitor) 40 mg PO DAILY [facility] Last Admin: 04/20/17 09:31 Dose: Not Given Sodium Chloride (Normal Saline 0.9%) 1,000 mls @ 60 mls/hr IV .[id number] [facility] Last Admin: 04/20/17 09:27 Dose: 60 mls/hr Insulin Human Regular (Novolin R) 1 - 5 unit SUBQ Q6HR [facility] PRN Reason: Protocol Last Admin: 04/20/17 12:00 Dose: Not Given Ondansetron HCl (Zofran Inj) 4 mg IVP Q6HR PRN PRN Reason: Nausea / Vomiting Pantoprazole Sodium (Protonix) 40 mg IVP BID [facility] Last Admin: 04/20/17 09:31 Dose: 40 mg Polyethylene Glycol (Miralax) 17 gm PO DAILY [facility] Last Admin: 04/20/17 09:30 Dose: Not Given Prochlorperazine Edisylate (Compazine Inj) 10 mg IVP Q6HR PRN PRN Reason: Nausea / Vomiting Sodium Chloride (Normal Saline Flush 0.9%) 10 ml IVP PRN PRN PRN Reason: NEEDED PER PROVIDER ORDERS Sodium Chloride (Normal Saline Flush 0.9%) 10 ml IVP Q8HR [facility] Last Admin: 04/20/17 14:00 Dose: 10 ml Atorvastatin Calcium 40 mg PO QPM 05/11/16 Glimepiride 2 mg PO QDBREAKFAST 05/11/16 Lisinopril 5 mg PO DAILY 05/11/16 Metformin HCl 500 mg PO BIDWM 05/11/16 Objective - Vital Signs/Intake & Output Reviewed Vital Signs: Yes Vital Signs: Vital Signs x48h Temp Pulse Resp BP Pulse Ox 04/20/17 13:00 78 16 101/69 97 04/20/17 12:00 36.7 C 81 16 109/83 H 97 04/20/17 11:00 78 14 121/75 96 04/20/17 10:00 77 18 111/69 97 04/20/17 09:00 79 17 122/74 97 Intake & Output: Intake & Output 04/17/17 04/18/17 04/19/17 04/20/17 23:59 23:59 23:59 23:59 Intake Total 1502.5 4761.0 3344.5 Output Total 1500 1600 Balance 1502.5 3261.0 1744.5 - Objective General Appearance: positive: No acute distress, Alert, Other (oriented, middle aged while male who looks younger than stated age.) Eyes Bilateral: positive: PERRL, EOMI ENT: positive: Pharynx nml Neck: positive: No JVD. negative: Lymphadenopathy (R), Lymphadenopathy (L), Stiff neck, Carotid bruit Respiratory: positive: Chest non-tender. negative: Wheezes, Rales, Rhonchi Cardiovascular: positive: Regular rate & rhythm. negative: Gallop/S3, Gallop/S4 , Friction rub Abdomen: positive: Non-tender, No organomegaly, Nml bowel sounds, No distention Skin: positive: Warm, Dry Extremities: positive: Full ROM, No pedal edema Neurologic/Psychiatric: positive: Oriented x3, CN's nml (2-12), Motor nml - Lab Results Fish Bones: 04/20/17 11:35 04/20/17 04:37 Other Labs: Lab Results x24hrs 04/20/17 04/20/17 04/20/17 Range/Units 11:35 04:37 04:37 WBC 12.2 H (4.8-10.8) x10^3/uL RBC 3.10 L (4.70-6.10) 10^6/uL Hgb 9.3 L 8.7 L (14.0-18.0) g/dL Hct 27.7 L 26.5 L (42.0-52.0) % MCV 85.5 (80.0-94.0) fL MCH 28.0 (27.0-31.0) pg MCHC 32.8 (32.0-36.0) g/dL RDW 15.5 H (12.0-15.0) % Plt Count 339 (130-450) 10^3/uL MPV 7.7 (7.4-11.4) fL Neut # 8.4 H (1.5-6.6) 10^3/uL Lymph # 2.9 (1.5-3.5) 10^3/uL Cook # 0.6 (0.0-1.0) 10^3/uL Eos # 0.2 (0.0-0.7) 10^3/uL Baso # 0.1 (0.0-0.1) 10^3/uL Absolute Nucleated RBC 0.00 x10^3/uL Nucleated RBC % 0.0 /100WBC Sodium 138 (135-145) mmol/L Potassium 3.9 (3.5-5.0) mmol/L Chloride 110 (101-111) mmol/L Carbon Dioxide 22 (21-32) mmol/L Anion Gap 6.0 (6-13) BUN 20 (6-20) mg/dL Creatinine 0.9 (0.6-1.2) mg/dL Estimated GFR (MDRD) 83 L (>89) Glucose 115 H (70-100) mg/dL Calcium 7.3 L (8.5-10.3) mg/dL Total Bilirubin 0.7 (0.2-1.0) mg/dL AST 23 (10-42) IU/L ALT 22 (10-60) IU/L Alkaline Phosphatase 46 (42-121) IU/L Total Protein 5.1 L (6.7-8.2) g/dL Albumin 2.7 L (3.2-5.5) g/dL Globulin 2.4 (2.1-4.2) g/dL Albumin/Globulin Ratio 1.1 (1.0-2.2) 04/19/17 04/19/17 Range/Units 23:15 19:03 WBC (4.8-10.8) x10^3/uL RBC (4.70-6.10) 10^6/uL Hgb 8.8 L 8.9 L (14.0-18.0) g/dL Hct 26.0 L 27.4 L (42.0-52.0) % MCV (80.0-94.0) fL MCH (27.0-31.0) pg MCHC (32.0-36.0) g/dL RDW (12.0-15.0) % Plt Count (130-450) 10^3/uL MPV (7.4-11.4) fL Neut # (1.5-6.6) 10^3/uL Lymph # (1.5-3.5) 10^3/uL Cook # (0.0-1.0) 10^3/uL Eos # (0.0-0.7) 10^3/uL Baso # (0.0-0.1) 10^3/uL Absolute Nucleated RBC x10^3/uL Nucleated RBC % /100WBC Sodium (135-145) mmol/L Potassium (3.5-5.0) mmol/L Chloride (101-111) mmol/L Carbon Dioxide (21-32) mmol/L Anion Gap (6-13) BUN (6-20) mg/dL Creatinine (0.6-1.2) mg/dL Estimated GFR (MDRD) (>89) Glucose (70-100) mg/dL Calcium (8.5-10.3) mg/dL Total Bilirubin (0.2-1.0) mg/dL AST (10-42) IU/L ALT (10-60) IU/L Alkaline Phosphatase (42-121) IU/L Total Protein (6.7-8.2) g/dL Albumin (3.2-5.5) g/dL Globulin (2.1-4.2) g/dL Albumin/Globulin Ratio (1.0-2.2) Assessment/Plan - Problem List (1) GI bleed due to NSAIDs Impression: and he has acute blood loss anemia with this. Patient presented with weakness, lightheadedness, dark tarry stool and hematemesis. On presentation the patient's hemoglobin was 8.7 down from a baseline of 15.9 just 2 months ago. Repeat was 7.2. Patient was hypotensive with a blood pressure of 80/43 and tachycardic with a heart rate of 103. Patient appeared pale. Patient was having an obvious GI bleed. On further history the patient has been taking 2 tablets of Aleve on an empty stomach every morning for the past 10 years. The patient also complained of epigastric abdominal pain for the last week which was worsening today. The patient likely has a gastric ulcer from his NSAID use and has actively having a GI bleed. This appears to be an upper GI bleed. EGD 04/19/17 showed large bleeding ulcer and base was injected with epi. He's had one more black stool but BP and Hgb are stable after 24 hours of octreotide Plan: 2 large-bore IVs continue Transfused 2 units of packed RBCs given the severe decrease in hemoglobin in the presence of hypotension, tachycardia and active bleeding. Transfused again if hgb <7 and if low BP returns. So far not needing more IV Protonix 40 mg twice daily N.p.o. advanced to clear liquids yesterday pm H&H every 6 hours IV fluid resuscitation continues Hold all antihypertensives Stop NSAIDs SCDs for DVT prophylaxis Transferred to ICU for octreotide infusion and that will stop now Now transfer back to Med Surg. (2) Diabetes Conclusion/Plan: Patient has history of diabetes and uses metformin and glimepiride at home. Given that the patient was n.p.o., he was on n.p.o. sliding scale insulin. Now on eating sliding scale Once patient is able to eat we will place him on a diabetic diet hemoglobin A1c is 7.1% Patient's blood glucose will be monitored 4 times a day Qualifiers: Diabetes mellitus type: type 2 (3) Hypertension Conclusion/Plan: Patient has history of hypertension and is on lisinopril at home. Given the patient's presentation with hypotension and GI bleed patient's antihypertensive medication will be held. He was 104/56 before going to the OR. Put of OR he has been low 120's systolic. for this afternoon he has been 101 to 109. Will watch carefully to make sure not slowly bleeding. He has no symptoms of nausea, diaphoresis, chest pain with this. IV fluids Qualifiers: Hypertension type: essential hypertension Qualified Code(s): I10 - Essential (primary) hypertension (4) COPD (chronic obstructive pulmonary disease) Conclusion/Plan: Patient has history of COPD and was a longtime smoker. The patient has had recent URI and has been having bronchitis and wheezing recently. on duo nebs as needed Oxygen as needed (5) Hyperlipidemia Conclusion/Plan: Patient has history of hyperlipidemia and takes Lipitor at home We will continue the patient's home dose of Lipitor Stable
[2017-04-20 18:06] LABS: HGB - HEMOGLOBIN 9.2 g/dL (14.0-18.0)
[2017-04-21] MEDS: INSULIN REGULAR HUMAN 100 UNIT/1 ML 10 ML MDV SUBQ SCH ×2 (01:27→06:10)
[2017-04-21 05:23] LABS: ALBUMIN/GLOBULIN RATIO 1.3 (1.0-2.2); BILIRUBIN,TOTAL 0.5 mg/dL (0.2-1.0); CALCIUM 7.7 mg/dL (8.5-10.3); CREATININE 0.9 mg/dL (0.6-1.2); TOTAL PROTEIN 5.4 g/dL (6.7-8.2)
[2017-04-21] MEDS: SODIUM CHLORIDE FLUSH 0.9% 10 ML SYRINGE IVP SCH ×3 (06:19→20:19)
[2017-04-21] MEDS: INSULIN ASPART 300 UNIT/3 ML PEN SUBQ SCH ×4 (08:59→22:59)
[2017-04-21] MEDS: POLYETHYLENE GLYCOL 3350 17 GM PACKET PO SCH (09:10)
[2017-04-21] MEDS: ATORVASTATIN 40 MG TABLET PO SCH (09:10)
[2017-04-21] MEDS: PANTOPRAZOLE 40 MG VIAL IVP SCH ×2 (09:10→20:18)
[2017-04-21 12:12] LABS: HGB - HEMOGLOBIN 9.3 g/dL (14.0-18.0)
--- NOTE | 2017-04-21 12:13 | PROVIDER PROGRESS NOTE ---
Subjective - General Admit Date: 04/18/17 Procedure Date: 04/19/17 Post Op Days: 2 Procedure Performed: EGD with control of bleeding duodenal ulcer - Review of Systems General: positive: No symptoms Objective - Patient Data Vital Signs: Vital Signs x48h Temp Pulse Resp BP Pulse Ox 04/21/17 08:58 36.7 C 72 16 119/68 97 Intake & Output: Intake and Output Totals x24h 04/19/17 04/20/17 04/21/17 23:59 23:59 23:59 Intake Total 4761.0 4504.5 1095.5 Output Total 1500 2800 1500 Balance 3261.0 1704.5 -404.5 - Lab Results Lab Results: 04/20/17 17:52 04/21/17 04:55 Other Lab Results: Lab Results x24hrs 04/21/17 04/20/17 04/20/17 Range/Units 04:55 23:57 17:52 Hgb 9.2 L (14.0-18.0) g/dL Hct 28.0 L (42.0-52.0) % Sodium 139 (135-145) mmol/L Potassium 4.1 (3.5-5.0) mmol/L Chloride 106 (101-111) mmol/L Carbon Dioxide 25 (21-32) mmol/L Anion Gap 8.0 (6-13) BUN 10 (6-20) mg/dL Creatinine 0.9 (0.6-1.2) mg/dL Estimated GFR (MDRD) 83 L (>89) Glucose 126 H (70-100) mg/dL POC Whole Bld Glucose 126 H (70 - 100) mg/dL Calcium 7.7 L (8.5-10.3) mg/dL Total Bilirubin 0.5 (0.2-1.0) mg/dL AST 18 (10-42) IU/L ALT 17 (10-60) IU/L Alkaline Phosphatase 53 (42-121) IU/L Total Protein 5.4 L (6.7-8.2) g/dL Albumin 3.0 L (3.2-5.5) g/dL Globulin 2.4 (2.1-4.2) g/dL Albumin/Globulin Ratio 1.3 (1.0-2.2) 04/20/17 04/20/1704/19/18 Range/Units 16:43 11:34 22:57 Hgb (14.0-18.0) g/dL Hct (42.0-52.0) % Sodium (135-145) mmol/L Potassium (3.5-5.0) mmol/L Chloride (101-111) mmol/L Carbon Dioxide (21-32) mmol/L Anion Gap (6-13) BUN (6-20) mg/dL Creatinine (0.6-1.2) mg/dL Estimated GFR (MDRD) (>89) Glucose (70-100) mg/dL POC Whole Bld Glucose 220 H 112 H 125 H (70 - 100) mg/dL Calcium (8.5-10.3) mg/dL Total Bilirubin (0.2-1.0) mg/dL AST (10-42) IU/L ALT (10-60) IU/L Alkaline Phosphatase (42-121) IU/L Total Protein (6.7-8.2) g/dL Albumin (3.2-5.5) g/dL Globulin (2.1-4.2) g/dL Albumin/Globulin Ratio (1.0-2.2) 04/19/17 04/19/17 04/19/17 Range/Units 12:37 10:04 06:21 Hgb (14.0-18.0) g/dL Hct (42.0-52.0) % Sodium (135-145) mmol/L Potassium (3.5-5.0) mmol/L Chloride (101-111) mmol/L Carbon Dioxide (21-32) mmol/L Anion Gap (6-13) BUN (6-20) mg/dL Creatinine (0.6-1.2) mg/dL Estimated GFR (MDRD) (>89) Glucose (70-100) mg/dL POC Whole Bld Glucose 98 128 H 93 (70 - 100) mg/dL Calcium (8.5-10.3) mg/dL Total Bilirubin (0.2-1.0) mg/dL AST (10-42) IU/L ALT (10-60) IU/L Alkaline Phosphatase (42-121) IU/L Total Protein (6.7-8.2) g/dL Albumin (3.2-5.5) g/dL Globulin (2.1-4.2) g/dL Albumin/Globulin Ratio (1.0-2.2) 04/19/17 Range/Units 00:41 Hgb (14.0-18.0) g/dL Hct (42.0-52.0) % Sodium (135-145) mmol/L Potassium (3.5-5.0) mmol/L Chloride (101-111) mmol/L Carbon Dioxide (21-32) mmol/L Anion Gap (6-13) BUN (6-20) mg/dL Creatinine (0.6-1.2) mg/dL Estimated GFR (MDRD) (>89) Glucose (70-100) mg/dL POC Whole Bld Glucose 148 H (70 - 100) mg/dL Calcium (8.5-10.3) mg/dL Total Bilirubin (0.2-1.0) mg/dL AST (10-42) IU/L ALT (10-60) IU/L Alkaline Phosphatase (42-121) IU/L Total Protein (6.7-8.2) g/dL Albumin (3.2-5.5) g/dL Globulin (2.1-4.2) g/dL Albumin/Globulin Ratio (1.0-2.2) - Current Medications Current Medications: Current Medications Generic Name Dose Route Start Last Admin Trade Name Freq PRN Reason Stop Dose Admin Albuterol/Ipratropium 3 ml 04/18/17 21:30 04/19/17 06:19 Duoneb INH 3 ml Q4HR PRN Administration Wheezing Atorvastatin Calcium 40 mg 04/19/17 09:00 04/21/17 09:10 Lipitor PO 40 mg DAILY ZENON Administration Insulin Aspart 1 - 5 unit 04/21/17 08:00 04/21/17 08:59 Novolog SUBQ Not Given 0800,1200,1700,2100 ZENON Protocol Pantoprazole Sodium 40 mg 04/19/17 09:00 04/21/17 09:10 Protonix IVP 40 mg BID ZENON Administration Polyethylene Glycol 17 gm 04/19/17 09:00 04/21/17 09:10 Miralax PO Not Given DAILY ZENON Sodium Chloride 10 ml 04/18/17 22:00 04/21/17 09:10 Normal Saline Flush 0.9% IVP 10 ml Q8HR ZENON Administration - Physical Exam General Appearance: positive: No acute distress Impression/Plan - Problem List Problem List: Gastrointestinal bleeding secondary to 2nd portion duodenal ulcer. Hemostasis was achieved with clipping to the visible bleeding vessel in the ulcer. Hgb currently stable. Recommend advancing diet slowly as not to disturb the clips. Full liquid today. Regular low residual bland diet in am. If stable then will d/c home tomorrow PM continue PPIs switching to oral in am. Follow H&H
[2017-04-21] MEDS ORDERED: KETOROLAC 30 MG/ML VIAL IVP PRN (15:35)
--- NOTE | 2017-04-21 16:42 | PROVIDER PROGRESS NOTE ---
Subjective - Prog Note Date Prog Note Date: 04/21/17 Prog Note Time: 16:40 - Subjective Pt reports feeling: Improved Subjective: he's Tolerated a clear liquid diet. Is not going to be transitioned to full liquid diet today. He has had no further black stools. No hypotension. Walking the hallways without any difficulty. Denies chest pain, palpitations, shortness of breath Current Medications - Current Medications Current Medications: Active Medications Acetaminophen (Tylenol) 650 mg PO Q4HR PRN PRN Reason: Pain 1 to 4 Acetaminophen/Hydrocodone Bitart (Cadott 5/325) 1 tab PO Q4HR PRN PRN Reason: Pain 5 to 7 Albuterol/Ipratropium (Duoneb) 3 ml INH Q4HR PRN PRN Reason: Wheezing Last Admin: 04/19/17 06:19 Dose: 3 ml Atorvastatin Calcium (Lipitor) 40 mg PO DAILY [facility] Last Admin: 04/21/17 09:10 Dose: 40 mg Insulin Aspart (Novolog) 1 - 5 unit SUBQ 0800,1200,1700,2100 [facility] PRN Reason: Protocol Last Admin: 04/21/17 12:17 Dose: 1 unit Ondansetron HCl (Zofran Inj) 4 mg IVP Q6HR PRN PRN Reason: Nausea / Vomiting Pantoprazole Sodium (Protonix) 40 mg IVP BID [facility] Last Admin: 04/21/17 09:10 Dose: 40 mg Polyethylene Glycol (Miralax) 17 gm PO DAILY [facility] Last Admin: 04/21/17 09:10 Dose: Not Given Prochlorperazine Edisylate (Compazine Inj) 10 mg IVP Q6HR PRN PRN Reason: Nausea / Vomiting Sodium Chloride (Normal Saline Flush 0.9%) 10 ml IVP PRN PRN PRN Reason: NEEDED PER PROVIDER ORDERS Sodium Chloride (Normal Saline Flush 0.9%) 10 ml IVP Q8HR [facility] Last Admin: 04/21/17 09:10 Dose: 10 ml Atorvastatin Calcium 40 mg PO QPM 05/11/16 Glimepiride 2 mg PO QDBREAKFAST 05/11/16 Lisinopril 5 mg PO DAILY 05/11/16 Metformin HCl 500 mg PO BIDWM 05/11/16 Objective - Vital Signs/Intake & Output Reviewed Vital Signs: Yes Vital Signs: Vital Signs x48h Temp Pulse Resp BP Pulse Ox 04/21/17 15:36 36.9 C 73 18 121/68 97 04/21/17 12:19 36.8 C 72 16 128/72 97 04/21/17 08:58 36.7 C 72 16 119/68 97 Intake & Output: Intake & Output 04/18/17 04/19/17 04/20/17 04/21/17 23:59 23:59 23:59 23:59 Intake Total 1502.5 4761.0 4504.5 2015.5 Output Total 1500 2800 1900 Balance 1502.5 3261.0 1704.5 115.5 - Objective General Appearance: positive: No acute distress, Alert, Other (Middle-aged short stature white male who looks stated age, at the bedside. Lucid, appropriate speech and memory) Eyes Bilateral: positive: PERRL, EOMI ENT: positive: Pharynx nml Neck: positive: No JVD. negative: Lymphadenopathy (R), Lymphadenopathy (L), Stiff neck, Carotid bruit Respiratory: positive: Chest non-tender. negative: Wheezes, Rales, Rhonchi Cardiovascular: positive: Regular rate & rhythm. negative: Gallop/S3, Gallop/S4 , Friction rub Abdomen: positive: Non-tender, No organomegaly, Nml bowel sounds, No distention Extremities: positive: Non-tender, Full ROM, No pedal edema Neurologic/Psychiatric: positive: Oriented x3, CN's nml (2-12), Motor nml - Lab Results Fish Bones: 04/21/17 12:04 04/21/17 04:55 Other Labs: Lab Results x24hrs 04/21/17 04/21/17 04/20/17 Range/Units 12:04 04:55 23:57 Hgb 9.3 L (14.0-18.0) g/dL Hct 25.1 L (42.0-52.0) % Sodium 139 (135-145) mmol/L Potassium 4.1 (3.5-5.0) mmol/L Chloride 106 (101-111) mmol/L Carbon Dioxide 25 (21-32) mmol/L Anion Gap 8.0 (6-13) BUN 10 (6-20) mg/dL Creatinine 0.9 (0.6-1.2) mg/dL Estimated GFR (MDRD) 83 L (>89) Glucose 126 H (70-100) mg/dL POC Whole Bld Glucose 126 H (70 - 100) mg/dL Calcium 7.7 L (8.5-10.3) mg/dL Total Bilirubin 0.5 (0.2-1.0) mg/dL AST 18 (10-42) IU/L ALT 17 (10-60) IU/L Alkaline Phosphatase 53 (42-121) IU/L Total Protein 5.4 L (6.7-8.2) g/dL Albumin 3.0 L (3.2-5.5) g/dL Globulin 2.4 (2.1-4.2) g/dL Albumin/Globulin Ratio 1.3 (1.0-2.2) 04/20/17 04/20/17 04/20/17 Range/Units 17:52 16:43 11:34 Hgb 9.2 L (14.0-18.0) g/dL Hct 28.0 L (42.0-52.0) % Sodium (135-145) mmol/L Potassium (3.5-5.0) mmol/L Chloride (101-111) mmol/L Carbon Dioxide (21-32) mmol/L Anion Gap (6-13) BUN (6-20) mg/dL Creatinine (0.6-1.2) mg/dL Estimated GFR (MDRD) (>89) Glucose (70-100) mg/dL POC Whole Bld Glucose 220 H 112 H (70 - 100) mg/dL Calcium (8.5-10.3) mg/dL Total Bilirubin (0.2-1.0) mg/dL AST (10-42) IU/L ALT (10-60) IU/L Alkaline Phosphatase (42-121) IU/L Total Protein (6.7-8.2) g/dL Albumin (3.2-5.5) g/dL Globulin (2.1-4.2) g/dL Albumin/Globulin Ratio (1.0-2.2) 04/19/17 04/19/17 04/19/17 Range/Units 22:57 12:37 10:04 Hgb (14.0-18.0) g/dL Hct (42.0-52.0) % Sodium (135-145) mmol/L Potassium (3.5-5.0) mmol/L Chloride (101-111) mmol/L Carbon Dioxide (21-32) mmol/L Anion Gap (6-13) BUN (6-20) mg/dL Creatinine (0.6-1.2) mg/dL Estimated GFR (MDRD) (>89) Glucose (70-100) mg/dL POC Whole Bld Glucose 125 H 98 128 H (70 - 100) mg/dL Calcium (8.5-10.3) mg/dL Total Bilirubin (0.2-1.0) mg/dL AST (10-42) IU/L ALT (10-60) IU/L Alkaline Phosphatase (42-121) IU/L Total Protein (6.7-8.2) g/dL Albumin (3.2-5.5) g/dL Globulin (2.1-4.2) g/dL Albumin/Globulin Ratio (1.0-2.2) 04/19/17 04/19/17 Range/Units 06:21 00:41 Hgb (14.0-18.0) g/dL Hct (42.0-52.0) % Sodium (135-145) mmol/L Potassium (3.5-5.0) mmol/L Chloride (101-111) mmol/L Carbon Dioxide (21-32) mmol/L Anion Gap (6-13) BUN (6-20) mg/dL Creatinine (0.6-1.2) mg/dL Estimated GFR (MDRD) (>89) Glucose (70-100) mg/dL POC Whole Bld Glucose 93 148 H (70 - 100) mg/dL Calcium (8.5-10.3) mg/dL Total Bilirubin (0.2-1.0) mg/dL AST (10-42) IU/L ALT (10-60) IU/L Alkaline Phosphatase (42-121) IU/L Total Protein (6.7-8.2) g/dL Albumin (3.2-5.5) g/dL Globulin (2.1-4.2) g/dL Albumin/Globulin Ratio (1.0-2.2) Assessment/Plan - Problem List (1) GI bleed due to NSAIDs Impression: and he has acute blood loss anemia with this. Patient presented with weakness, lightheadedness, dark tarry stool and hematemesis. On presentation the patient's hemoglobin was 8.7 down from a baseline of 15.9 just 2 months ago. Repeat was 7.2. Patient was hypotensive with a blood pressure of 80/43 and tachycardic with a heart rate of 103. Patient appeared pale. Patient was having an obvious GI bleed. On further history the patient has been taking 2 tablets of Aleve on an empty stomach every morning for the past 10 years. The patient also complained of epigastric abdominal pain for the last week which was worsening today. He has a gastric ulcer from his NSAID use and has actively having a GI bleed. EGD 04/19/17 showed large bleeding ulcer and base was injected with epi. He's had one more black stool the day after the EGD but BP and Hgb are stable after 24 hours of octreotide. Octreotide stopped around noon 04/20. Plan: 2 large-bore IVs continue Transfused 2 units of packed RBCs given the severe decrease in hemoglobin in the presence of hypotension, tachycardia and active bleeding. Transfused again if hgb <7 and if low BP returns. So far not needing more IV Protonix 40 mg twice daily N.p.o. advanced to clear liquids 04/19 pm and full liquid today H&H daily now. IV fluid resuscitation has stopped since BP stable. antihypertensives have been held. So far BBP 120's systolic off of his lisinopril. Resume a few days after discharge. Stopped NSAIDs and he has been warned to not take any in the outpt setting. SCDs for DVT prophylaxis can stop since he is walking. Transferred to ICU for octreotide infusion and that was for 24 hours only He was ICU and transferred out yesterday. Plan is home tomorrow if regular diet is tolerated in the morning. (2) Diabetes Conclusion/Plan: Patient has history of diabetes and uses metformin and glimepiride at home. Given that the patient was n.p.o., he was on n.p.o. sliding scale insulin. Now on eating sliding scale Once patient is able to eat we will place him on a diabetic diet hemoglobin A1c is 7.1% Patient's blood glucose will be monitored 4 times a day Qualifiers: Diabetes mellitus type: type 2 (3) Hypertension Conclusion/Plan: Patient has history of hypertension and is on lisinopril at home. Given the patient's presentation with hypotension and GI bleed patient's antihypertensive medication will be held. He was 104/56 before going to the OR. Put of OR he has been low 120's systolic.. for 04/20 afternoon he had been 101 to 109. Will watch carefully to make sure not slowly bleeding. He has no symptoms of nausea, diaphoresis, chest pain with this. Today he is 120's systolic. IV fluids Qualifiers: Hypertension type: essential hypertension Qualified Code(s): I10 - Essential (primary) hypertension (4) COPD (chronic obstructive pulmonary disease) Conclusion/Plan: Patient has history of COPD and was a longtime smoker. The patient has had recent URI and has been having bronchitis and wheezing recently. on duo nebs as needed Oxygen as needed (5) Hyperlipidemia Conclusion/Plan: Patient has history of hyperlipidemia and takes Lipitor at home We will continue the patient's home dose of Lipitor Stable
[2017-04-22] MEDS: SODIUM CHLORIDE FLUSH 0.9% 10 ML SYRINGE IVP SCH (06:06)
[2017-04-22 06:12] LABS: BASOPHILS # (AUTO) 0.1 10^3/uL (0.0-0.1); BASOPHILS % (AUTO) 0.7 %; EOSINOPHILS # (AUTO) 0.3 10^3/uL (0.0-0.7); EOSINOPHILS % (AUTO) 3.6 %; LYMPHOCYTES # (AUTO) 2.3 10^3/uL (1.5-3.5); LYMPHOCYTES % (AUTO) 27.8 %; MEAN CORPUSCULAR HEMOGLOBIN 28.4 pg (27.0-31.0); MEAN CORPUSCULAR HGB CONC 32.5 g/dL (32.0-36.0); MEAN CORPUSCULAR VOLUME 87.3 fL (80.0-94.0); MEAN PLATELET VOLUME 7.4 fL (7.4-11.4); MONOCYTES # (AUTO) 0.5 10^3/uL (0.0-1.0); MONOCYTES % (AUTO) 6.1 %; NEUTROPHILS # (AUTO) 5.2 10^3/uL (1.5-6.6); NEUTROPHILS % (AUTO) 61.8 %; PLT - PLATELET COUNT 372 10^3/uL (130-450); RED BLOOD COUNT 3.17 10^6/uL (4.70-6.10); RED CELL DISTRIBUTION WIDTH 16.2 % (12.0-15.0); WHITE BLOOD COUNT 8.4 x10^3/uL (4.8-10.8)
[2017-04-22 06:21] LABS: ALBUMIN 2.9 g/dL (3.2-5.5); ALBUMIN/GLOBULIN RATIO 1.1 (1.0-2.2); BILIRUBIN,TOTAL 0.5 mg/dL (0.2-1.0); TOTAL PROTEIN 5.6 g/dL (6.7-8.2)
[2017-04-22] MEDS: POLYETHYLENE GLYCOL 3350 17 GM PACKET PO SCH (08:11)
[2017-04-22 08:37] VITALS: BP 113/71
[2017-04-22] MEDS: ATORVASTATIN 40 MG TABLET PO SCH (08:51)
[2017-04-22] MEDS: INSULIN ASPART 300 UNIT/3 ML PEN SUBQ SCH (08:56)
[2017-04-22] MEDS: PANTOPRAZOLE 40 MG VIAL IVP SCH (08:57)
--- NOTE | 2017-04-22 10:08 | Discharge Plan ---
Discharge Plan Disposition: Home, Self Care Condition: Fair Diet: Diabetic Activity Restrictions: Activity as Tolerated Shower Restrictions: No Driving Restrictions: No Weight Bearing: Full Weight (Mr. Proctor will be discharged home with instructions to follow-up with Dr. Stoner in 2 weeks. He will be given omeprazole 40 mg every morning and will not be continuing NSAIDs. He will follow -up with Dr. Valencia for pain management.) No Smoking: If you smoke, Please STOP! Call for help. Follow-up with: Moris Valencia MD [Primary Care Provider] -
--- NOTE | 2017-04-22 11:29 | DISCHARGE SUMMARY ---
Discharge Summary Admit Date: 04/18/17 Discharge Date: 04/22/17 Discharging Provider: Aracelis Magana DO Primary Care Provider: Moris Valencia Code Status: Attempt Resuscitation Condition at Discharge: Fair Discharge Disposition: Home, Self Care - DIAGNOSES Admission Diagnoses: 1. GI bleed secondary to end-stage 2. Diabetes 3. Hypertension 4. COPD 5. Hyperlipidemia Discharge Diagnoses with Status of Each Condition: 1. GI bleed secondary to NSAIDS- Patient was taken to surgery with Dr. Stoner and duodenal ulcer was clipped. He will be discharged home on omeprazole 40 mg daily, will follow up with Dr. Stoner in 2 weeks, and will not take NSAIDs. He will follow-up with Dr. Valencia for pain management without NSAIDs. 2. Diabetes- The patient will Resume his home medication regimen 3. Hypertension- Well-managed, the patient will resume his home medication regimen 4. COPD- Well-managed, the patient will resume his home medication regimen 5. Hyperlipidemia- The patient will resume his home medication regimen - HPI History of Present Illness: Mr. Bulmaro Proctor is a 72-year-old male with a history ofChronic pain for which she has been taking NSAIDs for approximately 20 years. Over the last few days prior to admission he had been Having increasing weakness and lightheadedness. He drank a lot of fluids and this seemed to help but when the lightheadedness and weakness returned he came to the emergency room where he was found to be severely anemic. Subsequent testing found a GI bleed. - HOSPITAL COURSE Hospital Course: Mr. Bulmaro Proctor is a 72-year-old male with a history ofChronic pain for which she has been taking NSAIDs for approximately 20 years. Over the last few days prior to admission he had been Having increasing weakness and lightheadedness. He drank a lot of fluids and this seemed to help but when the lightheadedness and weakness returned he came to the emergency room where he was found to be severely anemic. Subsequent testing found a GI bleed and the patient was taken to the operating room with Dr. Stoner where it was found that he had a duodenal ulcer.The ulcer was clipped and the patient has stabilized over the last several days to the point where he is now stable enough to be discharged home today. - ALLERGIES Allergies/Adverse Reactions: Allergies Allergy/AdvReac Type Severity Reaction Status Date / Time tamsulosin [From Flomax] Allergy Rash Verified 04/18/17 19:52 ciprofloxacin AdvReac Cramps Verified 04/18/17 19:51 - MEDICATIONS Home Medications: Ambulatory Orders Medication Instructions Recorded Confirmed Atorvastatin Calcium 40 mg PO QPM 05/11/16 04/19/17 Glimepiride 2 mg PO QDBREAKFAST 05/11/16 04/19/17 Lisinopril 5 mg PO DAILY 05/11/16 04/19/17 Metformin HCl 500 mg PO BIDWM 05/11/16 04/19/17 Insulin Aspart [NovoLOG] 1 - 5 unit SUBQ 04/22/17 0800,1200,1700,2100 pen Ipratropium/Albuterol [Duoneb] 3 ml INH Q4HR PRN neb 04/22/17 Polyethylene Glycol 3350 [Miralax] 17 gm PO DAILY packet 04/22/17 - PHYSICAL EXAM AT DISCHARGE General Appearance: positive: No acute distress, Alert Eyes Bilateral: positive: Normal inspection, PERRL, EOMI, No lid inflammation ENT: positive: ENT inspection nml, Pharynx nml, No signs of dehydration. negative: Purulent nasal drainage Neck: positive: Nml inspection, Thyroid nml, No JVD, Trachea midline. negative : Thyromegaly Respiratory: positive: Chest non-tender, No respiratory distress, Breath sounds nml Cardiovascular: positive: Regular rate & rhythm, No murmur, No gallop, Irregularly irregular, Extrasystoles Peripheral Pulses: positive: 1+ Abdomen: positive: Non-tender, No organomegaly, Nml bowel sounds, No distention. negative: Guarding, Rebound Back: positive: Nml inspection. negative: CVA tenderness (R), CVA tenderness (L ) Skin: positive: Color nml, No rash, Warm, Dry. negative: Cyanosis Extremities: positive: Non-tender, Full ROM, Nml appearance Neurologic/Psychiatric: positive: Oriented x3, CN's nml (2-12), Motor nml, Sensation nml, Mood/affect nml - LABS Result Diagrams: 04/22/17 05:49 04/22/17 05:49 - TIME SPENT Time Spent in Discharge (Minutes): 30
== END 2017-04-22 11:15 | disposition home or self-care (01) | DRG 378 ==
LOC: EDUNIT# → ED 19:44 → SUPCPDRO 19:44 → MS2 21:30 → ICU 04-19 10:37 → MS2 04-20 18:20
PROVIDERS: ADMIT Internal Medicine; ATTEND Hospitalist
PROC: 30233N1 Transfusion of Nonautologous Red Blood Cells into Peripheral Vein, Percutaneous Approach (ICD-10-PCS; 2017-04-18)
PROC: 0DB78ZX Excision of Stomach, Pylorus, Via Natural or Artificial Opening Endoscopic, Diagnostic (ICD-10-PCS; 2017-04-19)
PROC: 0W3P8ZZ Control Bleeding in Gastrointestinal Tract, Via Natural or Artificial Opening Endoscopic (ICD-10-PCS; principal; 2017-04-19 09:40)
DX: K92.0 Hematemesis (principal); K92.1 Melena; M19.90 Unspecified osteoarthritis, unspecified site; K26.4 Chronic or unspecified duodenal ulcer with hemorrhage; E11.9 Type 2 diabetes mellitus without complications; Z79.1 Long term (current) use of non-steroidal anti-inflammatories (NSAID); E87.1 Hypo-osmolality and hyponatremia; D62 Acute posthemorrhagic anemia; K29.70 Gastritis, unspecified, without bleeding; T39.315A Adverse effect of propionic acid derivatives, initial encounter; Y92.002 Bathroom of unspecified non-institutional (private) residence as the place of occurrence of the external cause; I95.9 Hypotension, unspecified; E11.65 Type 2 diabetes mellitus with hyperglycemia; I10 Essential (primary) hypertension; J44.9 Chronic obstructive pulmonary disease, unspecified; G89.29 Other chronic pain; E78.5 Hyperlipidemia, unspecified; M19.042 Primary osteoarthritis, left hand; M19.041 Primary osteoarthritis, right hand; E66.9 Obesity, unspecified; N40.1 Benign prostatic hyperplasia with lower urinary tract symptoms; R33.8 Other retention of urine; Z79.84 Long term (current) use of oral hypoglycemic drugs; Z68.28 Body mass index [BMI] 28.0-28.9, adult; Z87.891 Personal history of nicotine dependence
CPT/HCPCS: 36415; 80053; 83036; 83690; 85014; 85018; 85025; 85610; 86850; 86900; 86901; 86920; 94640; 96361; 96374; 99284; 99285

== ENCOUNTER 2017-05-08 06:41 | Outpatient (CLI) | payer MEDICARE ==
[2017-05-08 06:55] LABS: BASOPHILS # (AUTO) 0.1 10^3/uL (0.0-0.1); BASOPHILS % (AUTO) 1.4 %; EOSINOPHILS # (AUTO) 0.3 10^3/uL (0.0-0.7); EOSINOPHILS % (AUTO) 4.3 %; HGB - HEMOGLOBIN 11.4 g/dL (14.0-18.0); LYMPHOCYTES # (AUTO) 2.7 10^3/uL (1.5-3.5); LYMPHOCYTES % (AUTO) 35.1 %; MEAN CORPUSCULAR HEMOGLOBIN 25.9 pg (27.0-31.0); MEAN CORPUSCULAR HGB CONC 31.6 g/dL (32.0-36.0); MEAN CORPUSCULAR VOLUME 81.8 fL (80.0-94.0); MEAN PLATELET VOLUME 6.9 fL (7.4-11.4); MONOCYTES # (AUTO) 0.6 10^3/uL (0.0-1.0); MONOCYTES % (AUTO) 8.5 %; NEUTROPHILS # (AUTO) 3.9 10^3/uL (1.5-6.6); NEUTROPHILS % (AUTO) 50.7 %; PLT - PLATELET COUNT 338 10^3/uL (130-450); RED BLOOD COUNT 4.41 10^6/uL (4.70-6.10); RED CELL DISTRIBUTION WIDTH 17.6 % (12.0-15.0); WHITE BLOOD COUNT 7.6 x10^3/uL (4.8-10.8)
== END 2017-05-08 06:42 | disposition home or self-care (01) ==
LOC: LAB 06:41
PROVIDERS: ATTEND Internal Medicine
DX: K92.2 Gastrointestinal hemorrhage, unspecified (principal)
CPT/HCPCS: 36415; 85025

== ENCOUNTER 2017-06-03 10:00 | Outpatient (CLI) | payer MEDICARE ==
[2017-06-03 15:36] LABS: HB2 TOTAL 13.2 g/dL; HEMOGLOBIN A1C 0.59 g/dL; HEMOGLOBIN A1C % 6.2 % (4.6-6.2)
== END 2017-06-03 10:01 | disposition home or self-care (01) ==
LOC: LAB.R 10:00
PROVIDERS: ATTEND Internal Medicine
DX: E11.9 Type 2 diabetes mellitus without complications (principal)
CPT/HCPCS: 83036

== ENCOUNTER 2017-06-17 06:07 | Day surgery (SDC) | payer MEDICARE ==
[2017-06-17] MEDS ORDERED: LACTATED RINGERS 1,000 ML IV ONE (06:41)
[2017-06-17] MEDS ORDERED: fentaNYL 250 MCG/5 ML VIAL IVP ONE (08:19)
[2017-06-17] MEDS ORDERED: MIDAZOLAM 2 MG/2 ML VIAL IVP ONE (08:19)
[2017-06-17 08:48] VITALS: BP 110/62
== END 2017-06-17 06:08 | disposition home or self-care (01) ==
LOC: SDS 06:07
PROVIDERS: ATTEND Surgery
PROC: 0DJ08ZZ Inspection of Upper Intestinal Tract, Via Natural or Artificial Opening Endoscopic (ICD-10-PCS; principal; 2017-06-17 07:30)
DX: K44.9 Diaphragmatic hernia without obstruction or gangrene (principal); Z87.19 Personal history of other diseases of the digestive system; E11.9 Type 2 diabetes mellitus without complications; I10 Essential (primary) hypertension; Z79.84 Long term (current) use of oral hypoglycemic drugs
CPT/HCPCS: 43235; J3010; J7120

== ENCOUNTER 2017-07-08 08:45 | Outpatient (CLI) | payer MEDICARE | END 2017-07-08 08:46 | disposition home or self-care (01) | LOC: LAB.R 08:45 | PROVIDERS: ATTEND Internal Medicine | DX: E03.9 Hypothyroidism, unspecified (principal) | CPT/HCPCS: 84443 ==

== ENCOUNTER 2017-08-18 10:00 | Outpatient (CLI) | payer MEDICARE | END 2017-08-18 10:01 | disposition home or self-care (01) | LOC: LAB.R 10:00 | PROVIDERS: ATTEND Internal Medicine | DX: R30.0 Dysuria (principal) | CPT/HCPCS: 87077; 87086; 87181 ==

== ENCOUNTER 2017-08-28 05:44 | Outpatient (CLI) | payer MEDICARE | END 2017-08-28 05:45 | disposition home or self-care (01) | LOC: LAB 05:44 | PROVIDERS: ATTEND Urology | DX: R97.20 Elevated prostate specific antigen [PSA] (principal); E29.1 Testicular hypofunction; N52.9 Male erectile dysfunction, unspecified; R68.82 Decreased libido; N35.9 Urethral stricture, unspecified | CPT/HCPCS: 81599 ==

== ENCOUNTER 2017-08-29 05:37 | Outpatient (CLI) | payer MEDICARE | END 2017-08-29 05:38 | disposition home or self-care (01) | LOC: LAB 05:37 | PROVIDERS: ATTEND Urology | DX: R97.20 Elevated prostate specific antigen [PSA] (principal); E29.1 Testicular hypofunction; N52.9 Male erectile dysfunction, unspecified; R68.82 Decreased libido; N35.9 Urethral stricture, unspecified | CPT/HCPCS: 81599; 84402; 84403 ==

== ENCOUNTER 2017-09-05 08:00 | Outpatient (CLI) | payer MEDICARE ==
[2017-09-05 14:10] LABS: HB2 TOTAL 14.1 g/dL; HEMOGLOBIN A1C 0.9 g/dL
== END 2017-09-05 08:01 | disposition home or self-care (01) ==
LOC: LAB.R 08:00
PROVIDERS: ATTEND Internal Medicine
DX: E11.9 Type 2 diabetes mellitus without complications (principal)
CPT/HCPCS: 83036

== ENCOUNTER 2017-12-01 10:45 | Outpatient (CLI) | payer MEDICARE | END 2017-12-01 10:46 | disposition home or self-care (01) | LOC: LAB.R 10:45 | PROVIDERS: ATTEND Internal Medicine | DX: R30.0 Dysuria (principal) | CPT/HCPCS: 87086 ==

== ENCOUNTER 2018-02-25 05:23 | Outpatient (CLI) | payer MEDICARE ==
[2018-02-25 06:01] LABS: BASOPHILS # (AUTO) 0.1 10^3/uL (0.0-0.1); BASOPHILS % (AUTO) 1.1 %; EOSINOPHILS # (AUTO) 0.4 10^3/uL (0.0-0.7); EOSINOPHILS % (AUTO) 7.2 %; HGB - HEMOGLOBIN 14.5 g/dL (14.0-18.0); LYMPHOCYTES # (AUTO) 2.2 10^3/uL (1.5-3.5); LYMPHOCYTES % (AUTO) 37.9 %; MEAN CORPUSCULAR HGB CONC 32.8 g/dL (32.0-36.0); MEAN CORPUSCULAR VOLUME 76.2 fL (80.0-94.0); MEAN PLATELET VOLUME 7.7 fL (7.4-11.4); MONOCYTES # (AUTO) 0.6 10^3/uL (0.0-1.0); MONOCYTES % (AUTO) 11.1 %; NEUTROPHILS # (AUTO) 2.4 10^3/uL (1.5-6.6); NEUTROPHILS % (AUTO) 42.7 %; PLT - PLATELET COUNT 222 10^3/uL (130-450); RED BLOOD COUNT 5.79 10^6/uL (4.70-6.10); RED CELL DISTRIBUTION WIDTH 18.2 % (12.0-15.0); WHITE BLOOD COUNT 5.7 x10^3/uL (4.8-10.8)
[2018-02-25 06:20] LABS: ALBUMIN 3.6 g/dL (3.2-5.5); ALBUMIN/GLOBULIN RATIO 1.1 (1.0-2.2); ALKALINE PHOSPHATASE 85 IU/L (42-121); ALT ALANINE AMINOTRANSFERASE 23 IU/L (10-60); AST ASPARTATE AMINOTRANSFERASE 24 IU/L (10-42); BILIRUBIN,TOTAL 0.4 mg/dL (0.2-1.0); BUN - BLOOD UREA NITROGEN 12 mg/dL (6-20); CALCIUM 8.3 mg/dL (8.5-10.3); CARBON DIOXIDE - CO2 24 mmol/L (21-32); CHLORIDE 105 mmol/L (101-111); CHOL/HDL RATIO 3.8 (<5.0); CHOLESTEROL 110 mg/dL; CREATININE 0.8 mg/dL (0.6-1.2); GFR - MDRD 95 (>89); GLUCOSE 169 mg/dL (70-100); HDL CHOLESTEROL 29 mg/dL; LDL CHOLESTEROL,CALCULATED 46 mg/dL; LDL/HDL RATIO 1.6 (<3.6); SODIUM 137 mmol/L (135-145); TOTAL PROTEIN 6.8 g/dL (6.7-8.2); VLDL CHOLESTEROL 35 mg/dL
[2018-02-25 06:26] LABS: HB2 TOTAL 15.9 g/dL; HEMOGLOBIN A1C 0.85 g/dL
[2018-02-25 11:47] LABS: PSA FREE 0.51 ng/mL (0.16-2.81)
[2018-02-25 12:00] LABS: PSA TOTAL 1.93 ng/mL (0.000-2.000)
== END 2018-02-25 05:24 | disposition home or self-care (01) ==
LOC: LAB 05:23
PROVIDERS: ATTEND Internal Medicine
DX: Z00.8 Encounter for other general examination (principal); E11.9 Type 2 diabetes mellitus without complications; M19.90 Unspecified osteoarthritis, unspecified site; E03.9 Hypothyroidism, unspecified; I10 Essential (primary) hypertension; E78.5 Hyperlipidemia, unspecified; E29.1 Testicular hypofunction
CPT/HCPCS: 36415; 80053; 80061; 83036; 83721; 84153; 84154; 84403; 84443; 85025

== ENCOUNTER 2018-03-22 20:11 | Outpatient (CLI) | payer MEDICARE ==
--- NOTE | 2018-03-23 01:43 | XRAY Report ---
Reason: WHEEZING, REACTIVE AIRWAY DISEASE Procedure Date: 03/22/2018 Accession Number: [id number] / [id number] Procedure: XR - Chest 2 View X-Ray CPT Code: 21495 FULL RESULT: EXAM: CHEST RADIOGRAPHY EXAM DATE: 03/22/2018 08:40 PM. CLINICAL HISTORY: WHEEZING, REACTIVE AIRWAY DISEASE. COMPARISON: CHEST 2 VIEW PA/LAT 04/12/2013 11:13 AM. TECHNIQUE: 2 Views. FINDINGS: Lungs/Pleura: Bronchial wall thickening is noted. Mild interstitial prominence noted in both lungs. No consolidation, effusions or pneumothorax. Mediastinum: Heart and mediastinal contours are unremarkable. Other: None. IMPRESSION: 1. Mild nonspecific interstitial prominence. Findings may represent chronic lung changes. 2. No acute pulmonary process. 3. Probable bronchitis or reactive airways disease. [facility]
--- NOTE | 2018-03-23 10:44 | Ultrasound Report ---
Reason: HYPOTHYROIDISM Procedure Date: 03/22/2018 Accession Number: [id number] / [id number] Procedure: US - Head or Neck Soft Tissue CPT Code: FULL RESULT: EXAM: THYROID ULTRASOUND EXAM DATE: 03/22/2018 09:15 PM. CLINICAL HISTORY: HYPOTHYROIDISM. COMPARISON: None. TECHNIQUE: Real time sonographic imaging of the thyroid was performed by the barrel cooper. Multiple sales representative metals static images were saved for review. FINDINGS: THYROID GLAND: Right Lobe: 4.1 x 2.1 x 1.0 cm, volume 4.5 cc. Normal background echotexture. Right Lobe Nodules: 1. Medial upper pole hypoechoic solid nodule measuring 4 x 3 x 3 mm. Left Lobe: 2.7 x 1.8 x 1.5 cm, volume 3.7 cc. Normal background echotexture. Left Lobe Nodules: None. Isthmus: 0.4 cm AP. Isthmic Nodules: None. LYMPH NODES: No adenopathy demonstrated in the central or lateral compartment. OTHER: None. IMPRESSION: 1. Small right upper pole thyroid nodule. 2. Recommend continued ultrasound surveillance in 6-24 months. Management recommendations are based on 2015 [place] [employer] Management Guidelines for Adult Patients with Thyroid Nodules and Differentiated Thyroid Cancer. [facility]
== END 2018-03-22 20:12 | disposition home or self-care (01) ==
LOC: DI 20:11
PROVIDERS: ATTEND Physician Assistant Medical
DX: E04.1 Nontoxic single thyroid nodule (principal); E03.9 Hypothyroidism, unspecified; J45.909 Unspecified asthma, uncomplicated
CPT/HCPCS: 71046; 76536

== ENCOUNTER 2018-04-03 08:00 | Outpatient (CLI) | payer MEDICARE ==
[2018-04-03 08:47] LABS: MEAN RETIC VALUE 96.7; RED BLOOD COUNT 6.35 10^6/uL (4.70-6.10)
[2018-04-03 08:50] LABS: VBG PH 7.335 (7.31-7.41)
[2018-04-03 09:17] LABS: THYROID STIMULATING HORMONE 6.58 uIU/mL (0.34-5.60)
[2018-04-03 09:19] LABS: FREE T4 (FREE THYROXINE) 0.73 ng/dL (0.58-1.64)
[2018-04-03 09:24] LABS: FERRITIN 8.3 ng/mL (23.9-336.2)
[2018-04-03 09:28] LABS: FOLATE 17.16 ng/mL (5.90 - >24.8)
== END 2018-04-03 23:59 | disposition home or self-care (01) ==
LOC: LAB.R 08:00
PROVIDERS: ATTEND Physician Assistant Medical
DX: R71.8 Other abnormality of red blood cells (principal); E03.9 Hypothyroidism, unspecified; E83.51 Hypocalcemia
CPT/HCPCS: 82330; 82607; 82728; 82746; 83010; 84439; 84443; 84481; 85044; 86880

== ENCOUNTER 2018-04-11 13:39 | Outpatient (CLI) | payer MEDICARE ==
[2018-04-11 14:35] LABS: PHOSPHORUS 2.2 mg/dL (2.5-4.6)
== END 2018-04-11 13:40 | disposition home or self-care (01) ==
LOC: LAB.F 13:39
PROVIDERS: ATTEND Physician Assistant Medical
DX: E83.51 Hypocalcemia (principal)
CPT/HCPCS: 36415; 82306; 83735; 83970; 84100

== ENCOUNTER 2018-05-07 08:00 | Outpatient (CLI) | payer MEDICARE ==
[2018-05-07 13:40] LABS: BASOPHILS # (AUTO) 0.1 10^3/uL (0.0-0.1); BASOPHILS % (AUTO) 1.1 %; EOSINOPHILS # (AUTO) 0.3 10^3/uL (0.0-0.7); EOSINOPHILS % (AUTO) 3.3 %; HGB - HEMOGLOBIN 15.8 g/dL (14.0-18.0); LYMPHOCYTES # (AUTO) 2.2 10^3/uL (1.5-3.5); LYMPHOCYTES % (AUTO) 28.2 %; MEAN CORPUSCULAR HEMOGLOBIN 26.1 pg (27.0-31.0); MEAN CORPUSCULAR VOLUME 79.1 fL (80.0-94.0); MEAN PLATELET VOLUME 8.4 fL (7.4-11.4); MONOCYTES # (AUTO) 0.7 10^3/uL (0.0-1.0); MONOCYTES % (AUTO) 8.6 %; NEUTROPHILS # (AUTO) 4.7 10^3/uL (1.5-6.6); NEUTROPHILS % (AUTO) 58.8 %; PLT - PLATELET COUNT 242 10^3/uL (130-450); RED BLOOD COUNT 6.06 10^6/uL (4.70-6.10); WHITE BLOOD COUNT 7.9 x10^3/uL (4.8-10.8)
[2018-05-07 13:55] LABS: CALCIUM 8.6 mg/dL (8.5-10.3); PHOSPHORUS 2.8 mg/dL (2.5-4.6)
== END 2018-05-07 23:59 | disposition home or self-care (01) ==
LOC: LAB.R 08:00
PROVIDERS: ATTEND Physician Assistant Medical
DX: Z79.899 Other long term (current) drug therapy (principal); E55.9 Vitamin D deficiency, unspecified; E83.51 Hypocalcemia; E83.39 Other disorders of phosphorus metabolism; E61.1 Iron deficiency
CPT/HCPCS: 82306; 82310; 82728; 84100; 85025

== ENCOUNTER 2018-07-28 14:56 | Outpatient (CLI) | payer MEDICARE ==
[2018-07-28 15:35] LABS: CALCIUM 9.3 mg/dL (8.5-10.3); CREATININE 0.9 mg/dL (0.6-1.2)
[2018-07-28 15:42] LABS: HB2 TOTAL 18.4 g/dL; HEMOGLOBIN A1C 0.93 g/dL; HEMOGLOBIN A1C % 6.8 % (4.6-6.2)
== END 2018-07-28 14:57 | disposition home or self-care (01) ==
LOC: LAB 14:56
PROVIDERS: ATTEND Internal Medicine
DX: E11.9 Type 2 diabetes mellitus without complications (principal)
CPT/HCPCS: 36415; 80048; 83036

== ENCOUNTER 2018-11-30 08:00 | Outpatient (CLI) | payer MEDICARE | END 2018-11-30 23:59 | LOC: LAB.R 08:00 | PROVIDERS: ATTEND Nurse Practitioner | DX: N39.0 Urinary tract infection, site not specified (principal); N35.11 Postinfective urethral stricture, not elsewhere classified, male | CPT/HCPCS: 87086; 87181 ==

== ENCOUNTER 2019-03-16 07:13 | Outpatient (CLI) | payer MEDICARE ==
[2019-03-16 07:35] LABS: BASOPHILS # (AUTO) 0.1 10^3/uL (0.0-0.1); BASOPHILS % (AUTO) 0.6 %; EOSINOPHILS # (AUTO) 0.3 10^3/uL (0.0-0.7); EOSINOPHILS % (AUTO) 3.3 %; HGB - HEMOGLOBIN 17.5 g/dL (14.0-18.0); LYMPHOCYTES # (AUTO) 2.5 10^3/uL (1.5-3.5); LYMPHOCYTES % (AUTO) 30.3 %; MEAN CORPUSCULAR HEMOGLOBIN 30.2 pg (27.0-31.0); MEAN CORPUSCULAR HGB CONC 33.5 g/dL (32.0-36.0); MEAN CORPUSCULAR VOLUME 90.3 fL (80.0-94.0); MEAN PLATELET VOLUME 9.1 fL (7.4-11.4); MONOCYTES # (AUTO) 0.6 10^3/uL (0.0-1.0); MONOCYTES % (AUTO) 6.7 %; NEUTROPHILS # (AUTO) 4.7 10^3/uL (1.5-6.6); PLT - PLATELET COUNT 217 10^3/uL (130-450); RED BLOOD COUNT 5.79 10^6/uL (4.70-6.10); RED CELL DISTRIBUTION WIDTH 12.6 % (12.0-15.0); WHITE BLOOD COUNT 8.2 x10^3/uL (4.8-10.8)
[2019-03-16 07:57] LABS: ALBUMIN 4.1 g/dL (3.2-5.5); ALBUMIN/GLOBULIN RATIO 1.4 (1.0-2.2); CREATININE 0.9 mg/dL (0.6-1.2)
[2019-03-16 08:08] LABS: HB2 TOTAL 18.2 g/dL; HEMOGLOBIN A1C 1.1 g/dL; HEMOGLOBIN A1C % 7.7 % (4.6-6.2)
[2019-03-16 08:47] LABS: PSA TOTAL 3.89 ng/mL (0.000-2.000)
[2019-03-16 09:23] LABS: PSA FREE 0.9 ng/mL (0.16-2.81)
== END 2019-03-16 07:14 | disposition home or self-care (01) ==
LOC: LAB 07:13
PROVIDERS: ATTEND Family Medicine
DX: E11.9 Type 2 diabetes mellitus without complications (principal); E78.5 Hyperlipidemia, unspecified; I10 Essential (primary) hypertension
CPT/HCPCS: 36415; 80053; 83036; 84153; 84154; 84403; 85025

== ENCOUNTER 2019-04-16 10:30 | Outpatient (CLI) | payer MEDICARE | END 2019-04-16 23:59 | disposition home or self-care (01) | LOC: LAB.R 10:30 | PROVIDERS: ATTEND Nurse Practitioner | DX: N30.90 Cystitis, unspecified without hematuria (principal) | CPT/HCPCS: 87086; 87181 ==

== ENCOUNTER 2019-06-24 08:00 | Outpatient (CLI) | payer MEDICARE | END 2019-06-24 23:59 | disposition home or self-care (01) | LOC: LAB.R 08:00 | PROVIDERS: ATTEND Family Medicine | DX: N39.0 Urinary tract infection, site not specified (principal) | CPT/HCPCS: 87086; 87181 ==

== ENCOUNTER 2020-03-18 13:20 | Outpatient (CLI) | payer MEDICARE ==
[2020-03-18 13:42] LABS: CALCIUM 8.9 mg/dL (8.5-10.3)
[2020-03-18 21:09] LABS: HEMOGLOBIN A1c% 7.6 % (4.27-6.07)
== END 2020-03-18 13:21 | disposition home or self-care (01) ==
LOC: LAB 13:20
PROVIDERS: ATTEND Family Medicine
DX: E11.9 Type 2 diabetes mellitus without complications (principal)
CPT/HCPCS: 36415; 80048; 83036

== ENCOUNTER 2020-10-09 08:37 | Outpatient (CLI) | payer MEDICARE ==
[2020-10-09 09:08] LABS: BASOPHILS # (AUTO) 0.1 10^3/uL (0.0-0.1); BASOPHILS % (AUTO) 0.7 %; EOSINOPHILS # (AUTO) 0.3 10^3/uL (0.0-0.7); EOSINOPHILS % (AUTO) 3.9 %; HCT - HEMATOCRIT 52.1 % (42.0-52.0); HGB - HEMOGLOBIN 17.4 g/dL (14.0-18.0); LYMPHOCYTES % (AUTO) 22.6 %; MEAN CORPUSCULAR HEMOGLOBIN 29.7 pg (27.0-31.0); MEAN CORPUSCULAR HGB CONC 33.4 g/dL (32.0-36.0); MEAN CORPUSCULAR VOLUME 89.1 fL (80.0-94.0); MEAN PLATELET VOLUME 9.6 fL (7.4-11.4); MONOCYTES # (AUTO) 0.7 10^3/uL (0.0-1.0); MONOCYTES % (AUTO) 7.7 %; NEUTROPHILS # (AUTO) 5.6 10^3/uL (1.5-6.6); NEUTROPHILS % (AUTO) 64.4 %; PLT - PLATELET COUNT 246 10^3/uL (130-450); RED BLOOD COUNT 5.85 10^6/uL (4.70-6.10); RED CELL DISTRIBUTION WIDTH 12.5 % (12.0-15.0); WHITE BLOOD COUNT 8.7 x10^3/uL (4.8-10.8)
[2020-10-09 09:25] LABS: ALBUMIN 4.1 g/dL (3.2-5.5); ALBUMIN/GLOBULIN RATIO 1.4 (1.0-2.2); ALKALINE PHOSPHATASE 86 IU/L (42-121); ALT ALANINE AMINOTRANSFERASE 35 IU/L (10-60); AST ASPARTATE AMINOTRANSFERASE 34 IU/L (10-42); BILIRUBIN,TOTAL 1.4 mg/dL (0.2-1.0); BUN - BLOOD UREA NITROGEN 13 mg/dL (6-20); CALCIUM 8.9 mg/dL (8.5-10.3); CARBON DIOXIDE - CO2 26 mmol/L (21-32); CHLORIDE 101 mmol/L (101-111); CHOL/HDL RATIO 3.7 (<5.0); CHOLESTEROL 122 mg/dL; CREATININE 0.9 mg/dL (0.6-1.2); GFR - MDRD 83 (>89); GLUCOSE 131 mg/dL (70-100); HDL CHOLESTEROL 33 mg/dL; LDL CHOLESTEROL,CALCULATED 67 mg/dL; SODIUM 137 mmol/L (135-145); TRIGLYCERIDES 108 mg/dL; VLDL CHOLESTEROL 22 mg/dL
[2020-10-09 09:38] LABS: THYROID STIMULATING HORMONE 4.66 uIU/mL (0.34-5.60)
== END 2020-10-09 08:38 | disposition home or self-care (01) ==
LOC: LAB 08:37
PROVIDERS: ATTEND Family Medicine
DX: J45.909 Unspecified asthma, uncomplicated (principal); E11.9 Type 2 diabetes mellitus without complications; E78.5 Hyperlipidemia, unspecified; E29.1 Testicular hypofunction
CPT/HCPCS: 36415; 80053; 80061; 83721; 84153; 84403; 84443; 85025

== ENCOUNTER 2021-03-02 15:53 | Emergency (ER) | payer MEDICARE ==
[2021-03-02] MEDS ORDERED: LIDOCAINE-EPINEPH-TETRACAINE 3 ML SYRINGE TOP STA (16:52)
--- NOTE | 2021-03-02 16:55 | ED Physician Documentation ---
History of Present Illness - Stated complaint Stated Complaint: HEAD LAC - Chief complaint Chief Complaint: Laceration - History obtained from History obtained from: Patient - History of Present Illness Timing: Today Pain level max: 0 Pain level now: 0 - Additonal information Additional information: Patient is a 76-year-old male who presents to the emergency department after a clock fell on his head in the garage causing 2 lacerations to the back of his head. No neck pain. No loss of consciousness. Does not take anticoagulants. Nothing makes it better or worse. No headache. Tetanus up-to-date Review of Systems Ten Systems: 10 systems reviewed and negative Constitutional: denies: Fever, Chills GI: denies: Vomiting, Diarrhea Skin: denies: Rash Musculoskeletal: denies: Neck pain, Back pain Neurologic: denies: Confused, Headache, LOC PD PAST MEDICAL HISTORY - Past Medical History Cardiovascular: Hypertension, Other Respiratory: COPD Endocrine/Autoimmune: Type 2 diabetes GI: Hemorrhoids : Benign prostate hypertrophy, Retention, Kidney stones HEENT: Macular degeneration Musculoskeletal: Osteoarthritis Derm: Psoriasis - Past Surgical History Past Surgical History: No - Present Medications Home Medications: Ambulatory Orders Medication Instructions Recorded Confirmed Atorvastatin Calcium 40 mg PO QPM 05/11/16 04/19/17 Glimepiride 2 mg PO QDBREAKFAST 05/11/16 04/19/17 Metformin HCl 500 mg PO BIDWM 05/11/16 04/19/17 lisinopriL [Lisinopril] 5 mg PO DAILY 05/11/16 04/19/17 - Allergies Allergies/Adverse Reactions: Allergies Allergy/AdvReac Type Severity Reaction Status Date / Time tamsulosin [From Flomax] Allergy Rash Verified 03/02/21 16:07 ciprofloxacin AdvReac Cramps Verified 03/02/21 16:07 sucralfate AdvReac Unknown Verified 03/02/21 16:07 - Social History Does the pt smoke?: No Smoking Status: Former smoker Does the pt drink ETOH?: Yes Does the pt have substance abuse?: No - Immunizations Immunizations are current?: Yes - POLST Patient has POLST: No POLST Status: Full Code PD ED PE NORMAL - Vitals Vital signs reviewed: Yes - General General: Alert and oriented X 3, No acute distress - HEENT HEENT: Moist mucous membranes, Other (2 lacerations to the occiput) - Neck Neck: Supple, no meningeal sign - Cardiac Cardiac: RRR - Respiratory Respiratory: No respiratory distress, Clear bilaterally - Back Back: No spinal TTP - Derm Derm: Warm and dry - Neuro Neuro: Alert and oriented X 3, cardiovascular rn 2-12 intact, No motor deficit, No sensory deficit, Normal speech Eye Opening: Spontaneous Motor: Obeys Commands Verbal: Oriented GCS Score: 15 - Psych Psych: Normal mood, Normal affect Results - Vitals Vitals: Vital Signs - 24 hr 03/02/21 03/02/21 16:03 17:52 Temperature 36.5 C 36.9 C Heart Rate 81 76 Respiratory 16 16 Rate Blood Pressure 144/80 H 153/109 H O2 Saturation 94 97 Oxygen O2 Source Room air Procedures - Laceration (location) Scalp Length in cm: 4 Wound type: Linear, Curved, Superficial, Clean Anesthesia: LET Wound preparation: Irrigated copiously NS Skin layer closure: [place] Other: Patient tolerated well, No complications, Neurovascular intact, Dressing applied, Tetanus UTD PD MEDICAL DECISION MAKING - ED course Complexity details: considered differential, d/w patient ED course: Laceration was repaired with tere. Tolerated well. No further bleeding. Tetanus up-to-date. No evidence of intracranial hemorrhage or skull fracture that require imaging. Patient counseled regarding signs and symptoms for which I believe and urgent re-evaluation would be necessary. Patient with good understanding of and agreement to plan and is comfortable going home at this time This document was made in part using voice recognition software. While efforts are made to proofread this document, sound alike and grammatical errors may occur. Departure - Departure Disposition: 01 Home, Self Care Clinical Impression: Scalp laceration Qualifiers: Encounter type: initial encounter Qualified Code(s): S01.01XA - Laceration without foreign body of scalp, initial encounter Condition: Good Instructions: ED Laceration Scalp Stitch Or Stap Follow-Up: Bennie Treviño MD [Primary Care Provider] - (in 10-14 days, staple removal ) Comments: Follow-up with your doctor in 10 to 14 days for staple removal. Return if you worsen. Return especially for redness, swelling, or drainage from the wound. Discharge Date/Time: 03/02/21 17:55
[2021-03-02 17:53] VITALS: BP 153/109
== END 2021-03-02 17:55 | disposition home or self-care (01) ==
LOC: ED 15:53
DX: S01.01XA Laceration without foreign body of scalp, initial encounter (principal); W20.8XXA Other cause of strike by thrown, projected or falling object, initial encounter; Y92.008 Other place in unspecified non-institutional (private) residence as the place of occurrence of the external cause; Z87.891 Personal history of nicotine dependence
CPT/HCPCS: 12002; 99281

== ENCOUNTER 2021-04-16 11:01 | Outpatient (CLI) | payer MEDICARE ==
[2021-04-16 11:23] LABS: ESTIMATED AVERAGE GLUCOSE 189 mg/dL (70-100); HEMOGLOBIN A1c% 8.2 % (4.27-6.07)
[2021-04-16 11:26] LABS: CALCIUM 9.3 mg/dL (8.5-10.3); CREATININE 1.1 mg/dL (0.6-1.2); POTASSIUM 4.3 mmol/L (3.5-5.0)
[2021-04-16 11:29] LABS: CREATININE,URINE 208.5 mg/dL; MICROALBUM/CREATININE RATIO,UR 22.1 ug/mg (<30.0); MICROALBUMIN,URINE 4.6 mg/dL (0-300.0)
== END 2021-04-16 11:02 | disposition home or self-care (01) ==
LOC: LAB 11:01
PROVIDERS: ATTEND Family Medicine
DX: E11.9 Type 2 diabetes mellitus without complications (principal); I10 Essential (primary) hypertension
CPT/HCPCS: 36415; 80048; 82043; 82570; 83036

== ENCOUNTER 2022-04-29 11:04 | Outpatient (CLI) | payer MEDICARE ==
[2022-04-29 11:24] LABS: BASOPHILS # (AUTO) 0.1 10^3/uL (0.0-0.1); BASOPHILS % (AUTO) 0.6 %; EOSINOPHILS # (AUTO) 0.2 10^3/uL (0.0-0.7); EOSINOPHILS % (AUTO) 1.8 %; HCT - HEMATOCRIT 53.6 % (42.0-52.0); HGB - HEMOGLOBIN 17.4 g/dL (14.0-18.0); LYMPHOCYTES # (AUTO) 2.5 10^3/uL (1.5-3.5); LYMPHOCYTES % (AUTO) 23.1 %; MEAN CORPUSCULAR HGB CONC 32.5 g/dL (32.0-36.0); MEAN CORPUSCULAR VOLUME 89.2 fL (80.0-94.0); MEAN PLATELET VOLUME 9.5 fL (7.4-11.4); MONOCYTES # (AUTO) 0.7 10^3/uL (0.0-1.0); MONOCYTES % (AUTO) 6.2 %; NEUTROPHILS # (AUTO) 7.1 10^3/uL (1.5-6.6); NEUTROPHILS % (AUTO) 67.2 %; PLT - PLATELET COUNT 252 10^3/uL (130-450); RED BLOOD COUNT 6.01 10^6/uL (4.70-6.10); RED CELL DISTRIBUTION WIDTH 12.8 % (12.0-15.0); WHITE BLOOD COUNT 10.6 x10^3/uL (4.8-10.8)
[2022-04-29 11:44] LABS: ALBUMIN/GLOBULIN RATIO 1.1 (1.0-2.2); ALKALINE PHOSPHATASE 84 IU/L (42-121); ALT ALANINE AMINOTRANSFERASE 28 IU/L (10-60); AST ASPARTATE AMINOTRANSFERASE 22 IU/L (10-42); BUN - BLOOD UREA NITROGEN 14 mg/dL (6-20); CARBON DIOXIDE - CO2 28 mmol/L (21-32); CHLORIDE 99 mmol/L (101-111); CHOL/HDL RATIO 4.2 (<5.0); CHOLESTEROL 147 mg/dL; GFR - MDRD 73 (>89); GLUCOSE 161 mg/dL (70-100); HDL CHOLESTEROL 35 mg/dL; LDL CHOLESTEROL,CALCULATED 83 mg/dL; LDL/HDL RATIO 2.4 (<3.6); POTASSIUM 4.1 mmol/L (3.5-5.0); SODIUM 136 mmol/L (135-145); TOTAL PROTEIN 7.5 g/dL (6.7-8.2); TRIGLYCERIDES 144 mg/dL; VLDL CHOLESTEROL 29 mg/dL
[2022-04-29 11:50] LABS: THYROID STIMULATING HORMONE 5.58 uIU/mL (0.34-5.60)
[2022-04-29 12:32] LABS: ESTIMATED AVERAGE GLUCOSE 183 mg/dL (70-100)
== END 2022-04-29 11:05 | disposition home or self-care (01) ==
LOC: LAB 11:04
PROVIDERS: ATTEND Family Medicine
DX: E11.9 Type 2 diabetes mellitus without complications (principal); I10 Essential (primary) hypertension; J44.9 Chronic obstructive pulmonary disease, unspecified; R97.20 Elevated prostate specific antigen [PSA]; E66.9 Obesity, unspecified; E78.5 Hyperlipidemia, unspecified
CPT/HCPCS: 36415; 80053; 80061; 82043; 82570; 83036; 83721; 84153; 84443; 85025

== ENCOUNTER 2022-04-30 11:49 | Outpatient (CLI) | payer MEDICARE ==
[2022-04-30 12:16] LABS: MICROALBUM/CREATININE RATIO,UR 22.8 ug/mg (<30.0); MICROALBUMIN,URINE 4.6 mg/dL (0-300.0)
== END 2022-04-30 11:50 | disposition home or self-care (01) ==
LOC: LAB.R 11:49
PROVIDERS: ATTEND Family Medicine
DX: I10 Essential (primary) hypertension (principal); J44.9 Chronic obstructive pulmonary disease, unspecified; R97.20 Elevated prostate specific antigen [PSA]; E66.9 Obesity, unspecified; E11.9 Type 2 diabetes mellitus without complications; E29.1 Testicular hypofunction
CPT/HCPCS: 82043; 82570